=== PATIENT | male | born 1930 | race Caucasian/White ===

== ENCOUNTER 2019-04-09 10:53 | Inpatient (IN) | payer MEDICARE, OTHER ==
[2019-04-09 11:33] LABS: #Eosinphils 0.2 thou/uL (0.0-0.7); #Lymphocytes 2.2 thou/uL (1.20-3.40); #Monocytes 0.8 thou/uL (0.11-0.59); #Neutrophils 7.2 thou/uL (1.40-6.50); %Basophils 0.4 % (0.0-1.0); %Eosinophils 1.9 % (0.0-10.0); %Lymphocytes 20.8 % (21.0-51.0); %Monocytes 7.5 % (0.0-10.0); %Neutrophils 69.4 % (42.0-75.0); Mean Corpuscular HGB CONC 31.9 g/dL (32.0-36.0); Mean Corpuscular Hemoglobin 32.2 pg (27.0-31.0); Mean Platelet Volume 9.4 fL (7.4-10.4); Platelet Count 160 thou/uL (130-400); RBC Distribution Width 11.9 % (11.5-14.5); Red Blood Cell (RBC) Count 3.72 mill/uL (4.70-6.10); White Blood Cell (WBC) Count 10.4 thou/uL (4.8-10.8)
[2019-04-09 11:39] LABS: INR-International Normal Ratio 1.7; PTT 35.8 SEC (22.9-36.1); Prothrombin Time 19.4 SEC (12.0-14.7)
[2019-04-09 11:59] LABS: ALT (SGPT) 19 U/L (8-55); AST (SGOT) 25 U/L (5-34); Albumin 3.6 g/dL (3.4-4.8); Alkaline Phosphatase 58 U/L (40-110); Anion Gap 12 mmol/L (10-20); BUN (Urea Nitrogen) 56 mg/dL (8.4-25.7); Bilirubin, Total 0.6 mg/dL (0.2-1.2); Calc. Creatinine Clearance 0 mL/min (70-130); Calcium 8.8 mg/dL (7.8-10.44); Carbon Dioxide 27 mmol/L (23-31); Chloride 105 mmol/L (98-107); Estimated GFR-MDRD 43; Globulin 2.6 g/dL (2.4-3.5); Glucose 94 mg/dL (83-110); Potassium 4.6 mmol/L (3.5-5.1); Protein, Total 6.2 g/dL (5.8-8.1); Sodium 139 mmol/L (136-145)
[2019-04-09 12:58] LABS: Bilirubin Negative (Negative); Blood, Urine Negative (Negative); Clarity Clear (Clear); Glucose, Urine (Dipstick) Normal (Negative); Leukocyte Negative Leu/uL (Negative); Nitrite Negative (Negative); Protein, Urine (Dipstick) Negative (Neg-Trace); Urobilinogen Normal mg/dL (Less than 2)
[2019-04-09] MEDS ORDERED: Ondansetron ODT 4 MG TAB SL PRN (13:00)
[2019-04-09] MEDS ORDERED: Ondansetron PF 4 MG/2 ML Vial IVP PRN (13:00)
[2019-04-09 13:41] LABS: CKMB 1.9 ng/mL (0-6.6)
--- NOTE | 2019-04-09 13:55 | CT ---
CT BRAIN NONCONTRAST: DATE: 04/09/2019 HISTORY: 89-year-old male with dizziness and generalized weakness FINDINGS: There is no evidence of acute intra-axial or extra-axial hemorrhage. There is no midline shift or any other mass effect. There is no extra-axial fluid collection. There is no evidence of obstructive hydrocephalus. Calvarium is intact. There is diffuse brain parenchymal volume loss. There are low att enuation areas in the white matter. 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 IMPRESSION: 1) No acute intracranial findings. 2) involutional changes and chronic ischemic white matter changes.
[2019-04-09] MEDS ORDERED: Aspirin Chewable 81 MG TAB ONE (14:05)
[2019-04-09] MEDS ORDERED: Dextrose 5 % And 0.9 % NaCl 1,000 ML IV SCH (16:30)
[2019-04-09] MEDS ORDERED: Calcium Carbonate 500 MG ChewTAB PO PRN (16:37)
[2019-04-09 17:13] LABS: INR-International Normal Ratio 1.6; PTT 33.6 SEC (22.9-36.1); Prothrombin Time 18.9 SEC (12.0-14.7)
[2019-04-09 17:23] LABS: ALT (SGPT) 19 U/L (8-55); AST (SGOT) 29 U/L (5-34); Albumin 3.3 g/dL (3.4-4.8); Alkaline Phosphatase 52 U/L (40-110); Anion Gap 12 mmol/L (10-20); BUN (Urea Nitrogen) 58 mg/dL (8.4-25.7); Bilirubin, Total 0.6 mg/dL (0.2-1.2); Calc. Creatinine Clearance 38 mL/min (70-130); Calcium 8.6 mg/dL (7.8-10.44); Carbon Dioxide 26 mmol/L (23-31); Chloride 108 mmol/L (98-107); Estimated GFR-MDRD 46; Globulin 2.4 g/dL (2.4-3.5); Glucose 96 mg/dL (83-110); Potassium 4.7 mmol/L (3.5-5.1); Protein, Total 5.7 g/dL (5.8-8.1); Sodium 141 mmol/L (136-145)
[2019-04-09 17:32] LABS: Troponin I 0.066 ng/mL (< 0.028)
--- NOTE | 2019-04-09 18:07 | PDOC.HHP ---
Hospitalist HPI - History of Present Illness black diarrhea History of Present Illness: 89yo M w/ MHx of paroxysmal atrial fibrillation (on eliquis 5mg PO qd, pacemaker in place), arthritis (ibuprofen bid for the past 10 years) presents with black diarrhea. Patient has been recently started on eliquis for atrial fibrillation (02/26) by Dr. chen, and has been taking ibuprofen usually bidaily for arthritis for the past 10 years. Yesterday, started noticing black liquidiy black stools so presented to the ED. Denies fatigue , chest pain or pressure, palpitations, dyspnea, hematemesis, hematochezia, abdominal pain, focal weakness, previous such episodes, usage of over the counter medications. ED Course: In the ED, was found to have mild anemia with stable hemoglobin, troponin was indeterminate, and FOBT was positive. He was admitted to the telemetry floor for further monitoring Hospitalist ROS - Review of Systems Constitutional: denies: fever, chills, sweats, weakness, malaise, other Eyes: denies: pain, vision change, conjunctivae inflammation, eyelid inflammation, redness, other ENT: reports: other (no hematemesis, no history of esophageal varices) Respiratory: denies: cough, dry, shortness of breath, hemoptysis, SOB with excertion, pleuritic pain, sputum, wheezing, other Cardiovascular: reports: chest pain (chest pressure for thirty minutes that resolved hours ago; not associated with exertion). denies: palpitations, orthopnea, paroxysmal noc. dyspnea, edema, light headedness, other Gastrointestinal: reports: diarrhea, melena. denies: nausea, vomiting, abdominal pain, constipation, hematochezia, other Genitourinary: denies: dysuria, frequency, incontinence, hematuria, retention, other Skin: denies: rash, lesions, caroline, bruising, other Neurological: denies: weakness, numbness, incoordination, change in speech, confusion, seizures, other All other systems reviewed; all pertinent +/- noted in HPI/Subj Hospitalist History - Past Medical History Source: patient, family Cardiac: reports: AFIB. denies: CAD, CHF, [place] Pulmonary: denies: CVA/TIA/stroke, congestive heart failure, lung disease [employer]: denies: TIA Gastrointestinal: denies: Constipation, Diverticulosis, GI bleed, Gastritis, Inflam bowel disease, Irritable bowel disease, Peptic ulcer disease Hepatobiliary: reports: no pertinent history Psych: reports: no pertinent history Musculoskeletal: reports: no pertinent history Rheumatologic: reports: no pertinent history Infectious Disease: reports: no pertinent history ENT: reports: no pertinent history Renal/: reports: no pertinent history Endocrine: reports: no pertinent history Dermatology: reports: no pertinent history - Exam General Appearance: NAD, awake alert Eye: PERRL ENT: normocephalic atraumatic, no oropharyngeal lesions, moist mucosa Neck: supple, symmetric, no thyromegaly, no lymphadenopathy, JVD Heart: RRR, no murmur, no gallops, no rubs, normal peripheral pulses Respiratory: CTAB, no wheezes, no ronchi, normal chest expansion, no tachypnea, normal percussion, rales Gastrointestinal: soft, non-tender, non-distended, normal bowel sounds, no palpable masses, no hepatomegaly, no splenomegaly, no bruit Extremities: no cyanosis, no clubbing Extremities - other findings: pitting edema b/l up to knee level Neurological: cranial nerve grossly intact, normal sensation to touch, no weakness, no focal deficits, no new deficit Musculoskeletal: normal tone, normal strength, no muscle wasting Psychiatric: normal affect, normal behavior, A&O x 3 Hospitalist Results - Labs Result Diagrams: 04/09/19 11:20 04/09/19 16:56 Lab results: WBC 10.4 thou/uL (4.8-10.8) 04/09/19 11:20 Hgb 12.0 g/dL (14.0-18.0) L 04/09/19 11:20 Hct 37.5 % (42.0-52.0) L 04/09/19 11:20 MCV 101.0 fL (78.0-98.0) H 04/09/19 11:20 Plt Count 160 thou/uL (130-400) 04/09/19 11:20 Neutrophils % 69.4 % (42.0-75.0) 04/09/19 11:20 Sodium 141 mmol/L (136-145) 04/09/19 16:56 Potassium 4.7 mmol/L (3.5-5.1) 04/09/19 16:56 Chloride 108 mmol/L (98-107) H 04/09/19 16:56 Carbon Dioxide 26 mmol/L (23-31) 04/09/19 16:56 BUN 58 mg/dL (8.4-25.7) H 04/09/19 16:56 Creatinine 1.44 mg/dL (0.7-1.3) H 04/09/19 16:56 Glucose 96 mg/dL (83-110) 04/09/19 16:56 Calcium 8.6 mg/dL (7.8-10.44) 04/09/19 16:56 Total Bilirubin 0.6 mg/dL (0.2-1.2) 04/09/19 16:56 AST 29 U/L (5-34) 04/09/19 16:56 ALT 19 U/L (8-55) 04/09/19 16:56 Alkaline Phosphatase 52 U/L (40-110) 04/09/19 16:56 CK-MB (CK-2) 1.9 ng/mL (0-6.6) 04/09/19 11:20 Troponin I 0.066 ng/mL (< 0.028) H 04/09/19 16:57 Serum Total Protein 5.7 g/dL (5.8-8.1) L 04/09/19 16:56 Albumin 3.3 g/dL (3.4-4.8) L 04/09/19 16:56 Urine Ketones Negative mg/dL (Negative) 04/09/19 12:42 Urine Blood Negative (Negative) 04/09/19 12:42 Urine Nitrite Negative (Negative) 04/09/19 12:42 Ur Leukocyte Esterase Negative Gerry/uL (Negative) 04/09/19 12:42 - EKG Interpretation EKG: EKG showed paced rhythm with no concordand ST changes suggestive of acute ischemia Hospitalist H&P A/P - Problem (1) Upper GI bleed Code(s): K92.2 - GASTROINTESTINAL HEMORRHAGE, UNSPECIFIED Status: Acute (2) Atrial fibrillation Code(s): I48.91 - UNSPECIFIED ATRIAL FIBRILLATION Status: Acute (3) Elevated troponin Code(s): R79.89 - OTHER SPECIFIED ABNORMAL FINDINGS OF BLOOD CHEMISTRY Status : Acute (4) Hypervolemia Code(s): E87.70 - FLUID OVERLOAD, UNSPECIFIED Status: Acute - Plan Plan: * Upper GI bleed * melanotic stools * FOBT positive; BUN/Cr significantly elevated * likely due to chronic ibuprofen use and recent initiation of eliquis * presented with mild anemia * * will follow HgB q8h * pantoprazole 40mg PO bid * patient HD stable, will hold fluids considering hypervolemic state * GI consult for EGD * atrial fibrillation * per patient, was recently diagnosed by dr chen but poor historian; will obtain records * telemetry showed paced rhythm, well controlled rate * * stopped eliquis and aspirin in context of GIB * troponinemia * downtrending * atypical chest pain that resolved * may be due to atrial fibrillation episodes or demand due to acute anemia * EKG showing no signs of acute ischemia * hypervolemia * no records available regarding heart failure but likely etiology * * will continue home lasix * BNP; if elevated will obtain echo * continue home medications * Dispo * full code * DVT PPX: mechanical due to GIB * GI PPX: treated for GIB
[2019-04-09] MEDS ORDERED: Pantoprazole 40 MG VIAL IVP SCH (21:00)
[2019-04-09] MEDS: Dronedarone HCl 400 MG TAB PO SCH (21:39)
[2019-04-09] MEDS: Ascorbic Acid 500 mg Chewable Tablet PO SCH (21:39)
--- NOTE | 2019-04-09 21:40 | CON ---
DATE OF CONSULTATION: 04/09/2019 CHIEF COMPLAINT: Weakness and blood in the stool. HISTORY OF PRESENT ILLNESS: Mr. Eastman is an 89-year-old man, who was started on Eliquis a couple of months ago for atrial fibrillation. He takes ibuprofen a couple of tablets per day for arthritis in his hands and back. He has had no nausea or vomiting. Last night, he noticed a black tarry runny stool. This morning, had a second episode. He told his about it. She advised him going to the emergency room to get it checked out. He takes Tums 3 times per day for years for frequent belching. He gets some pressure-like periumbilical abdominal discomfort intermittently, but no new abdominal pain. His weight has been stable. He states that he had a colonoscopy a few years ago by Dr. Rich. PAST MEDICAL HISTORY: Atrial fibrillation, arthritis, hyperlipidemia, hypertension. PAST SURGICAL HISTORY: Pacemaker placement and replacement, cataract surgery, shoulder surgery, hand surgery, tonsillectomy. FAMILY HISTORY: Negative for GI malignancy. SOCIAL HISTORY: No alcohol, tobacco, or drugs. ALLERGIES: NO KNOWN DRUG ALLERGIES. MEDICATIONS: Prior to admission; 1. Rosuvastatin. 2. Ezetimibe. 3. Bystolic. 4. Lasix. 5. Klor-Con. 6. Ecotrin. 7. Cetirizine. 8. Multaq. 9. Eliquis 5 mg twice daily. His last dose was this morning. 10. Ibuprofen 400 mg as needed for arthritis pain. REVIEW OF SYSTEMS: Negative x10 systems reviewed, except as stated in the history of present illness. PHYSICAL EXAMINATION: VITAL SIGNS: Temperature 98.4, pulse 62, blood pressure 142/63. GENERAL: He is in no acute distress. Alert and oriented x3. HEENT: Eyes have no scleral icterus. Oropharynx is clear without lesions. NECK: No cervical or supraclavicular lymphadenopathy. LUNGS: Clear to auscultation bilaterally. HEART: Regular rate and rhythm without murmur. ABDOMEN: Soft, nontender, and nondistended. Bowel sounds are present. EXTREMITIES: 1+ pitting lower extremity edema. NEUROLOGIC: Cranial nerves are grossly intact. LABORATORY DATA: White blood cell count 10.4, hemoglobin 12.0, MCV 101, platelets 160. INR 1.6. Creatinine 1.44. Bilirubin 0.6, AST 29, ALT 19, alkaline phosphatase 52, albumin 3.3. IMPRESSION: 1. Gastrointestinal bleed presenting with melena a couple of episodes last night and this morning. This is in the setting of chronic anticoagulation on Eliquis. He also takes ibuprofen daily for arthritis. 2. Acute kidney disease with a creatinine at 1.53 on presentation, 1.44 a few hours later. BUN is elevated, which could be secondary to the bleeding. This could delay metabolism of the Eliquis. 3. Anemia of acute blood loss. He is hemodynamically stable. We will follow the trend of his hemoglobin. RECOMMENDATIONS: 1. Proton pump inhibitor IV. 2. Eliquis has been held. Last dose was this morning. 3. I will plan for EGD on Thursday. In the meantime, we will keep him on a clear liquid diet. Job ID: [id number]
[2019-04-10 05:19] LABS: Hemoglobin 8.3 g/dL (14.0-18.0)
[2019-04-10 05:45] LABS: ALT (SGPT) 17 U/L (8-55); AST (SGOT) 24 U/L (5-34); Albumin 2.9 g/dL (3.4-4.8); Alkaline Phosphatase 42 U/L (40-110); Anion Gap 12 mmol/L (10-20); BUN (Urea Nitrogen) 57 mg/dL (8.4-25.7); Bilirubin, Total 0.5 mg/dL (0.2-1.2); Calc. Creatinine Clearance 43 mL/min (70-130); Calcium 8.1 mg/dL (7.8-10.44); Carbon Dioxide 23 mmol/L (23-31); Chloride 112 mmol/L (98-107); Estimated GFR-MDRD 54; Globulin 1.9 g/dL (2.4-3.5); Glucose 102 mg/dL (83-110); Magnesium 2.1 mg/dL (1.6-2.6); Potassium 4.3 mmol/L (3.5-5.1); Protein, Total 4.8 g/dL (5.8-8.1); Sodium 143 mmol/L (136-145)
[2019-04-10] MEDS ORDERED: Furosemide 40 MG TAB PO SCH (09:00)
[2019-04-10] MEDS ORDERED: Potassium Chloride 10 MEQ TAB PO SCH (09:00)
[2019-04-10 09:07] LABS: Hemoglobin 7.9 g/dL (14.0-18.0)
[2019-04-10] MEDS: Dronedarone HCl 400 MG TAB PO SCH ×2 (10:14→20:27)
[2019-04-10] MEDS: Pantoprazole 40 MG VIAL IVP SCH ×2 (10:14→20:28)
[2019-04-10] MEDS: Nebivolol HCl 5 MG TAB PO SCH (10:14)
[2019-04-10] MEDS ORDERED: ePHEDrine/0.9% NaCl/PF SYRINGE 50 mg/10 ml ONE (10:28)
[2019-04-10] MEDS ORDERED: Lidocaine 1% PF 5 ML VIAL ONE (10:28)
[2019-04-10] MEDS ORDERED: PHENYLEPHRINE-NS 100 MCG/ML 10 ML SYRINGE ONE (10:28)
[2019-04-10] MEDS ORDERED: PROPOFOL 200 MG/20 ML VIAL ONE (10:28)
[2019-04-10] MEDS: Rosuvastatin 10 MG TAB PO SCH (11:40)
[2019-04-10] MEDS: Ezetimibe 10 MG TAB PO SCH (11:40)
[2019-04-10] MEDS: Ascorbic Acid 500 mg Chewable Tablet PO SCH ×2 (11:40→20:27)
[2019-04-10] MEDS ORDERED: Promethazine HCl 25 MG/ML VIAL SLOW IVP PRN (13:20)
[2019-04-10] MEDS ORDERED: Ondansetron HCl/PF 4 MG/2 ML Vial IVP PRN (13:20)
[2019-04-10] MEDS ORDERED: Promethazine HCl 25 MG/ML VIAL IM PRN (13:20)
--- NOTE | 2019-04-10 14:12 | OP ---
DATE OF PROCEDURE: 04/10/2019 PROCEDURE PERFORMED: Esophagogastroduodenoscopy with control of hemorrhage and biopsy. PREOPERATIVE DIAGNOSES: 1. Gastrointestinal bleed. 2. Anemia of acute blood loss, on anticoagulation for atrial fibrillation. His hemoglobin dropped from 12 to 7.9, and he did receive blood transfusion. His INR remains elevated despite having been off Eliquis for 24 hours now. In light of the significant drop in his hemoglobin, we are following through with endoscopy today rather than waiting until tomorrow. DESCRIPTION OF PROCEDURE: Informed consent was obtained from the patient. He was sedated with total intravenous anesthesia. The bite block was placed and the endoscope was advanced easily to the second portion of the duodenum and retroflexion was performed in the stomach. The esophagus had mild distal esophagitis with a retained pill sitting in the esophagus. The pill and white plaque from the pill were advanced into the stomach. There was no significant erosions associated with this. The stomach had multiple shallow 1 cm erosions in the antrum without stigmata of recent bleeding. Retroflexed views in the stomach were unremarkable. The first portion of the duodenum was normal. The second portion of the duodenum had a 1 cm ulcer with a protruding red visible vessel in the base. This appeared to be an obvious bleeding source. There was no blood in the stomach or duodenum at the time of the procedure. 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 The scope could be advanced right up to the stricture and almost through, but the scope did not pass through the stricture. I could see well beyond and the mucosa appeared healthy beyond the stricture. I did not dilate this today. I placed 3 hemoclips over the visible vessel in the ulcer. There was good hemostasis confirmed. Biopsies were obtained from the antrum of the stomach to rule out H pylori. IMPRESSION: 1. Distal mild esophagitis with a pill sitting in the lower esophagus. 2. Erosive antral gastritis. Antral biopsies were taken to rule out Helicobacter pylori. 3. 1 cm ulcer in the second portion of the duodenum with a protruding red visible vessel in the base. This was treated with hemoclip placement x3 with good hemostasis confirmed. 4. 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 RECOMMENDATIONS: 1. Proton pump inhibitor twice daily. 2. Low-fiber diet in light of the duodenal stricture. 3. It should be okay to restart Eliquis in 1 or 2 weeks. Consider the lower dose Eliquis in light of his age and reduced renal function and bleed. 4. Await histopathology. 5. I will sign off for now. Please call if GI can be of assistance. I anticipate he should be able to be discharged home tomorrow if his hemoglobin stable and he is tolerating his diet well. He should follow up in the office in a couple of weeks. Job ID: [id number]
--- NOTE | 2019-04-10 16:01 | PDOC.HOSPP ---
- Subjective Encounter Date: 04/10/19 Encounter Time: 08:00 Subjective: overnight, lost 4g HgB after having 2-3 large melanotic stools. This morning, appears pale, weak, and complains of severe weakness to the point of barely being able to speak. Immediately reconvened with GI regarding acute deterioration - Objective Vital Signs & Weight: Vital Signs (12 hours) Temp Pulse Pulse Resp BP BP Pulse Ox 04/10/19 11:29 98.1 F 74 20 128/61 96 04/10/19 10:55 97.9 F 77 16 120/56 L 04/10/19 07:36 97.5 F L 69 20 103/55 L 94 L Weight Weight 168 lb 1.6 oz I&O: 04/09/19 04/10/19 04/11/19 06:59 06:59 06:59 Intake Total 390 10 Output Total 450 Balance 390 -440 Result Diagrams: 04/10/19 09:00 04/10/19 05:03 Hospitalist ROS - Review of Systems Constitutional: reports: weakness. denies: fever, chills, sweats, malaise, other Eyes: reports: pain Respiratory: reports: SOB with excertion. denies: cough, dry, shortness of breath, hemoptysis, pleuritic pain, sputum, wheezing, other Cardiovascular: reports: edema, light headedness. denies: chest pain, palpitations, orthopnea, paroxysmal noc. dyspnea, other Gastrointestinal: reports: melena, hematochezia. denies: nausea, vomiting, abdominal pain, diarrhea, constipation, other Genitourinary: denies: dysuria, frequency, incontinence, hematuria, retention, other Neurological: reports: weakness, change in speech - Medication Medications: Active Medications Generic Name Dose Route Start Last Admin Trade Name Freq PRN Reason Stop Dose Admin Ascorbic Acid 500 mg 04/09/19 21:00 04/10/19 11:40 Vitamin C PO Not Given BID GIORGI Dronedarone 400 mg 04/09/19 21:00 04/10/19 10:14 Multaq PO 400 mg BID GIORGI Administration Ezetimibe 5 mg 04/10/19 09:00 04/10/19 11:40 Zetia PO Not Given DAILY GIORGI Nebivolol 5 mg 04/10/19 09:00 04/10/19 10:14 Bystolic PO 5 mg DAILY GIORGI Administration Pantoprazole Sodium 40 mg 04/10/19 09:00 04/10/19 10:14 Protonix IVP 40 mg Q12HR GIORGI Administration Rosuvastatin Calcium 10 mg 04/10/19 09:00 04/10/19 11:40 Crestor PO Not Given DAILY GIORGI Sodium Chloride 10 ml 04/09/19 16:26 04/09/19 21:39 Flush - Normal Saline IVF 10 ml PRN PRN Administration Saline Flush - Exam General Appearance: awake alert, ill appearing General - other findings: appears pale, worse than yesterday Eye - other findings: pale conjunctivae ENT: dry oral mucosa Neck: JVD Heart: no murmur, no gallops, no rubs, normal peripheral pulses Heart - other findings: regular rhythm; mild tachcardia Respiratory: CTAB, no wheezes, no rales, no ronchi, normal chest expansion, tachypneic Gastrointestinal: soft, non-tender, non-distended Gastrointestinal - other findings: hyperactive bowel sounds Extremities: no cyanosis, no clubbing Extremities - other findings: b/l pitting edema to knee level; improved Neurological: cranial nerve grossly intact, normal sensation to touch, no focal deficits, no new deficit Psychiatric: normal affect, normal behavior, A&O x 3 Hosp A/P (1) Upper GI bleed Code(s): K92.2 - GASTROINTESTINAL HEMORRHAGE, UNSPECIFIED Status: Acute (2) Atrial fibrillation Code(s): I48.91 - UNSPECIFIED ATRIAL FIBRILLATION Status: Acute (3) Elevated troponin Code(s): R79.89 - OTHER SPECIFIED ABNORMAL FINDINGS OF BLOOD CHEMISTRY Status : Acute (4) Hypervolemia Code(s): E87.70 - FLUID OVERLOAD, UNSPECIFIED Status: Acute - Plan * Upper GI bleed * acute symptomatic anemia due to blood loss * per nurse, two large melanotic stools and some reddish blood in second stool * HgB 12->8 overnight * notified GI immediately; currently s/p EGD and duodenal ulcer, hemoclipped; biopsies pending * per patient's request changed to DNAR * * transfused 2 x PRBC prior to EGD * protonix bid * low fiber diet for duodenal stricture * agree w/ GI regarding lower dosage of eliquis * * atrial fibrillation * per patient, was recently diagnosed by dr chen but poor historian; will obtain records * telemetry showing paced rhythm, well controlled rate * * stopped eliquis and aspirin in context due to GIB * will request to be seen by cardiology outpatient but agree with lower dosage of eliquis * * hypervolemia (improving) * no records available regarding heart failure but likely etiology * * will hold lasix considering bordeline hypotension * * troponinemia * downtrending * atypical chest pain that resolved * may be due to atrial fibrillation episodes or demand due to acute anemia * EKG showing no signs of acute ischemia * Dispo * DNAR (per patient's request) * DVT PPX: mechanical due to GIB * GI PPX: treated for GIB
[2019-04-10 17:53] LABS: Hemoglobin 11.1 g/dL (14.0-18.0)
[2019-04-11 05:30] LABS: Anion Gap 9 mmol/L (10-20); BUN (Urea Nitrogen) 41 mg/dL (8.4-25.7); Calc. Creatinine Clearance 47 mL/min (70-130); Calcium 8.1 mg/dL (7.8-10.44); Carbon Dioxide 25 mmol/L (23-31); Chloride 112 mmol/L (98-107); Estimated GFR-MDRD 59; Glucose 116 mg/dL (83-110); Potassium 3.9 mmol/L (3.5-5.1); Sodium 142 mmol/L (136-145)
[2019-04-11 05:57] LABS: #Basophils 0.1 thou/uL (0.0-0.2); #Eosinphils 0.1 thou/uL (0.0-0.7); #Monocytes 1.2 thou/uL (0.11-0.59); %Basophils 0.6 % (0.0-1.0); %Eosinophils 0.8 % (0.0-10.0); %Lymphocytes 15.8 % (21.0-51.0); %Monocytes 9.6 % (0.0-10.0); %Neutrophils 73.2 % (42.0-75.0); Anisocytosis SLIGHT = 6-15 cells (100X) (0-5/hpf); Hemoglobin 9.9 g/dL (14.0-18.0); MDiff Complete? YES; Mean Corpuscular HGB CONC 32.2 g/dL (32.0-36.0); Mean Corpuscular Volume 93.2 fL (78.0-98.0); Mean Platelet Volume 10.2 fL (7.4-10.4); Platelet Count 111 thou/uL (130-400); Platelet Morphology Comment Appears Decreased; RBC Distribution Width 17.4 % (11.5-14.5); White Blood Cell (WBC) Count 12.3 thou/uL (4.8-10.8)
[2019-04-11] MEDS: Ascorbic Acid 500 mg Chewable Tablet PO SCH (09:38)
[2019-04-11] MEDS: Dronedarone HCl 400 MG TAB PO SCH (09:38)
[2019-04-11] MEDS: Nebivolol HCl 5 MG TAB PO SCH (09:39)
[2019-04-11] MEDS: Ezetimibe 10 MG TAB PO SCH (09:39)
[2019-04-11] MEDS: Rosuvastatin 10 MG TAB PO SCH (09:39)
[2019-04-11] MEDS: Pantoprazole 40 MG VIAL IVP SCH (09:39)
[2019-04-11 12:03] LABS: Hemoglobin 9.9 g/dL (14.0-18.0)
[2019-04-11 12:32] VITALS: BP 128/63; TEMP 97.4
[2019-04-11 15:47] VITALS: BMI 27.1
--- NOTE | 2019-04-12 15:02 | DIS ---
DATE OF ADMISSION: 04/10/2019 DATE OF DISCHARGE: 04/11/2019 HOSPITAL COURSE: Mr. Eastman is an 89-year-old male with medical history of arthritis, who presented after having multiple black liquidy stools for the past day. The patient has been using ibuprofen for the past 10 years regularly usually twice a day for arthritis, and has also been started on Eliquis for recent diagnosis of atrial fibrillation. He was diagnosed with a bleeding duodenal ulcer after an EGD was done, and also was hemo-clipped with biopsies pending. During his inpatient stay, the patient had to be transfused with 2 units of packed RBCs due to severe symptomatic anemia, but after the procedure, the patient's symptoms resolved and his hemoglobin remained stable at around 10 g/dL. The patient was discharged home with extensive education regarding his new medications as well as holding his Eliquis dose until he is seen by his activity aide as an outpatient. PHYSICAL EXAMINATION: VITAL SIGNS: The patient's vitals were unremarkable. GENERAL: On exam, he was sitting comfortably in the chair, in no apparent distress. HEENT: Eye exam, mild conjunctival paleness bilaterally. CARDIAC: Regular rate and rhythm. No murmurs. No gallops. LUNGS: Clear to auscultation bilaterally. No rales, rhonchi, or wheezing. ABDOMEN: Soft, nontender, and nondistended. Normal bowel sounds. EXTREMITIES: No edema. PSYCHIATRIC: Normal affect. Normal behavior. Alert and oriented x3. ASSESSMENT AND PLAN: Mr. Eastman is an 89-year-old male, who presented with acute symptomatic anemia due to a bleeding duodenal ulcer. 1. Bleeding duodenal ulcer: a. Most likely cause is chronic use of ibuprofen. On the day of discharge, the patient was informed not to use NSAIDs any longer, and if in pain to use Tylenol Extra Strength. b. The patient was discharged on Protonix b.i.d. and low-fiber diet per GI recommendations. c. The patient's Eliquis was held, pending assessment by outpatient activity aide within 2 to 3 weeks. d. The patient's aspirin was continued, but the patient was advised to return to the ED in case anemic symptoms resurface. 2. Atrial fibrillation: a. The patient was recently diagnosed by Dr. Lui. b. On the telemetry floor, he was showing a paced rhythm. Well controlled rate. c. We stopped the Eliquis and the aspirin initially due to the upper gastrointestinal bleed. d. Aspirin was resumed, but Eliquis was continued to be held based on GI recommendations until the patient is seen as an outpatient by his activity aide. 3. Troponinemia: a. The patient initially presented with indeterminate levels of troponins that remained elevated. He did complain about atypical chest pain that has already resolved. EKG showed no signs of acute ischemia. Most likely due to demand ischemia in the context of acute anemia. The patient's discharge took 70 minutes after extensive explanation to the patient and then again to the family members after they arrived at the patient's home. Job ID: [id number]
--- NOTE | 2019-04-13 14:41 | EKG ---
Test Reason : ROUTINE Blood Pressure : / mmHG Vent. Rate : 060 BPM Atrial Rate : 065 BPM P-R Int : 000 ms QRS Dur : 158 ms QT Int : 526 ms P-R-T Axes : 000 -77 088 degrees QTc Int : 526 ms AV dual-paced rhythm Abnormal ECG Reconfirmed by Jonathan CONNORS ([id number]), assignment desk editor HARDEEP VALDES ([id number]) on 04/13/2019 2:40:31 PM Referred By: TRAVIS Confirmed By:Jonathan CONNORS
== END 2019-04-11 18:32 | disposition home health service (06) | DRG 378 ==
LOC: ERS 10:53 → 2SW 13:03 → OBSVTOIN 04-10 17:35
PROVIDERS: ADMIT Internal Medicine; ATTEND Internal Medicine
PROC: 0W3P8ZZ Control Bleeding in Gastrointestinal Tract, Via Natural or Artificial Opening Endoscopic (ICD-10-PCS; principal; 2019-04-10)
PROC: 0DB78ZX Excision of Stomach, Pylorus, Via Natural or Artificial Opening Endoscopic, Diagnostic (ICD-10-PCS; 2019-04-10)
PROC: 30233N1 Transfusion of Nonautologous Red Blood Cells into Peripheral Vein, Percutaneous Approach (ICD-10-PCS; 2019-04-10)
DX: K26.4 Chronic or unspecified duodenal ulcer with hemorrhage (principal); N17.9 Acute kidney failure, unspecified; D62 Acute posthemorrhagic anemia; Z66 Do not resuscitate; I48.0 Paroxysmal atrial fibrillation; K20.9 Esophagitis, unspecified; K29.71 Gastritis, unspecified, with bleeding; M19.90 Unspecified osteoarthritis, unspecified site; E87.70 Fluid overload, unspecified; R79.89 Other specified abnormal findings of blood chemistry; E78.00 Pure hypercholesterolemia, unspecified; Z79.01 Long term (current) use of anticoagulants; Z95.0 Presence of cardiac pacemaker; Z79.899 Other long term (current) drug therapy
CPT/HCPCS: 36415; 36430; 70450; 80048; 80053; 81003; 82274; 82553; 83735; 83880; 84484; 85018; 85025; 85610; 85730; 86850; 86900; 86901; 88305; 88312; 93005; 93010; 93306; C9113; J2001; J2704; P9016

== ENCOUNTER 2019-12-08 11:53 | Outpatient (CLI) | payer MEDICARE ==
--- NOTE | 2019-12-08 13:55 | RAD ---
2 VIEWS CHEST: Date: 12/08/2019 COMPARISON: CTA chest dated 12/08/2019. HISTORY: Pleural effusion. FINDINGS: Two views of the chest shows a cardiomediastinal silhouette which is upper limits of normal in size. A pacemaker is seen with its leads in the right atrium and ventricle. There is moderate right pleural effusion with adjacent atelectasis. No left pleural effusion is seen. No focal infiltrates are appre ciated. Degenerative changes are seen in the spine. The patient is status post left shoulder arthroplasty. IMPRESSION: Moderate right pleural effusion. POS: [facility]
--- NOTE | 2019-12-08 14:10 | CT ---
CTA OF THE CHEST WITH CONTRAST: 12/08/19 COMPARISON: Chest x-ray 12/08/19. HISTORY: Had follow-up for pacemaker in Dr. Lui's office this morning. An echocardiogram showed a possibl e mass and pleural effusion. TECHNIQUE: Multiple contiguous axial images were obtained in a CTA of the chest without and with IV contrast. Sa gittal and coronal reformats were performed. FINDINGS: There is a moderate right pleural effusion. Atelectasis is seen in the right lower lobe which appears slightly mass-like. No obvious mass is identified. No left pleural effusion is seen. No focal infilt rates are present. There are calcified granulomas in the right middle lobe. The pulmonary arteries are well opacified without filling defects to suggest pulmonary emboli. A pace maker is seen with its leads in the right atrium and ventricle. Calcifications are seen in the wilde ry arteries. No hilar or mediastinal lymphadenopathy are appreciated. The visualized subdiaphragmatic structures are unremarkable. Degenerative changes are seen in the spi ne with chronic wedge compression deformity of the T12 vertebral body. The chest wall soft tissues ar e unremarkable. IMPRESSION: 1. Moderate right pleural effusion with adjacent atelectasis. 2. No evidence of pulmonary thromboembolism. POS: [facility]
== END 2019-12-08 11:54 | disposition home or self-care (01) ==
LOC: CT 11:53
PROVIDERS: ATTEND Internal Medicine Cardiovascular Disease
DX: J90 Pleural effusion, not elsewhere classified (principal); J98.11 Atelectasis
CPT/HCPCS: 36415; 71046; 71275; 80053; 80061; 82565

== ENCOUNTER 2019-12-22 08:45 | Outpatient (CLI) | payer MEDICARE ==
--- NOTE | 2019-12-22 12:10 | RAD ---
PA AND LATERAL VIEWS CHEST: HISTORY: Pleural effusion. COMPARISON: 12/08/2019. FINDINGS: The heart size is normal. The left-sided pacemaker device remains in place. The moderate-sized righ t pleural effusion is again seen with adjacent atelectatic change. No pneumothoraces, left-sided ple ural effusion, or left-sided infiltrates are seen. IMPRESSION: Stable moderate-sized right pleural effusion. POS: [facility]
== END 2019-12-22 08:46 | disposition home or self-care (01) ==
LOC: BICRAD 08:45
PROVIDERS: ATTEND Internal Medicine Cardiovascular Disease
DX: J90 Pleural effusion, not elsewhere classified (principal)
CPT/HCPCS: 36415; 71046; 80053; 80061; 84443

== ENCOUNTER 2020-01-04 08:01 | Day surgery (SDC) | payer MEDICARE ==
[2020-01-03 10:35] VITALS: BMI 22.8
--- NOTE | 2020-01-03 13:23 | HP ---
The patient is scheduled for a procedure on 01/04/2020, at 9 a.m. in Day Surgery, thoracentesis. HISTORY OF PRESENT ILLNESS: An 89-year-old gentleman, lifelong nonsmoker, who is referred here by Dr. Lui for a right pleural effusion. His CT and chest x-ray showed a moderate right pleural effusion. Date of exam was 12/08/2019, which I reviewed and agreed. He has never smoked. No prior history of TB, pneumonia, or bronchial asthma. For the last 2 years, he is having some difficulty breathing without any associated fever, chills, sweats, or cough. Denies any weight loss. PAST MEDICAL HISTORY: Pertinent mainly for hypertension, diastolic dysfunction, high cholesterol, coronary artery disease. 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 MEDICATIONS: Include, 1. Crestor 10. 2. Zetia mg. 3. Bystolic 2.5 mg. 4. Lasix 120 two a day. 5. Potassium. 6. Aspirin. 7. Vitamin C. 8. Amiodarone 200 two a day. 9. Eliquis 5 two a day, which he is going to stop today. 10. Protonix 40 a day. ALLERGIES: NONE. SOCIAL HISTORY: Retired [employer]. . REVIEW OF SYSTEMS: Ten-point negative. PHYSICAL EXAMINATION: VITAL SIGNS: Oxygen saturation on room air, pulse 74, blood pressure 120/70, respiratory rate 18. CHEST: Decreased breath sounds in the right lower one-half, left unremarkable. There is no wheezing and no crackles. CARDIAC: Normal S1 and S2. No gallops. ABDOMEN: Soft. IMPRESSION: 1. Moderate right pleural effusion. 2. Status post pacemaker, atrial fibrillation, hypertension, high cholesterol. PLAN: Outpatient thoracentesis will be done. Further recommendation thereafter. Job ID: [id number]
[2020-01-04 10:05] LABS: Fluid, Triglycerides 11 mg/dL (Not Available); Pleural Fluid, Amylase Less than 30 U/L (Not Available); Pleural Fluid, Glucose 110 mg/dL; Pleural Fluid, LDH 71 U/L (Not Available); Pleural Fluid, Protein 2.7 g/dL
--- NOTE | 2020-01-04 10:09 | OP ---
DATE OF PROCEDURE: 01/04/2020 PROCEDURE PERFORMED: Thoracentesis. INDICATION: Pleural effusion, right sided. DESCRIPTION OF PROCEDURE: After informed consent, the patient was sitting upright in bed. The right posterior thorax was cleaned with chlorhexidine. 1% lidocaine infiltrated into the right 9th intercostal space in the posterior axillary line. The pleural cavity was entered in. 20 mL of pale yellow fluid was removed. Thereafter, using an 8-Kyrgyz catheter, a total of 1200 mL was removed without any difficulty. Pleural effusion appears to be a transudate; however, it will be sent for all appropriate studies including cytology and culture. Discharge note: Mr. Eastman tolerated the procedure well and vital signs remained stable. Postprocedure x-rays pending. Results of the fluid will be made available to the patient and family. Further recommendation thereafter. Job ID: [id number]
[2020-01-04 10:12] LABS: RBC Count-Automated (BF) 67 /cu.mm; WBC/Nucleated-Auto (BF) 145 uL
[2020-01-04 10:33] LABS: Body Fluid Source Thoracentesis Fluid; Clarity Clear (Clear); Tube # 1
[2020-01-04 10:34] LABS: BF Color Yellow
[2020-01-04 10:38] LABS: BF Segmented Neutrophils 3 %; Cell Count Non Hematic 51 %; Lymphocytes 46 %
--- NOTE | 2020-01-04 11:41 | RAD ---
CHEST 1 VIEW: Date: 01/04/2020 INDICATION: Status post thoracentesis. COMPARISON: Prior chest 2 views dated 12/22/2019. FINDINGS: There is a moderate collection of air underlying the right base likely related to a persistent trappe d lung. The right lower lobe did not appreciably unravel after removal of the moderate sized right pl eural effusion, likely related to a component of pleural thickening. There is a small right apical pn eumothorax component also involving the right hemithorax. Dr. Watkins was contacted with the findings at 0959 hours on 01/04/2020. Left lung is clear. Mild cardiomegaly and pacemaker stable. Left total gisel ulder replacement is similar appearing. IMPRESSION: Interval thoracentesis with likely a trapped right lower lobe and moderate right basilar pneumothorax . Small right apical pneumothorax is also present. Contact to Dr. Watkins as above. CODE CR.
--- NOTE | 2020-01-05 10:05 | DIS ---
DATE OF ADMISSION: 01/04/2020 DATE OF DISCHARGE: 01/04/2020 DISCHARGE SUMMARY: Thoracentesis. The patient tolerated the procedure well. X-ray post thoracentesis shows a loculated effusion in the right base, where the effusion was more than likely the lung is trapped, it has not re-expanded. The patient is asymptomatic. He has good breath sounds on his left lung. Discharged home to be followed up in the office at sometime. Job ID: [id number]
== END 2020-01-04 10:00 | disposition home or self-care (01) ==
LOC: SDC/OP 08:01
PROVIDERS: ATTEND Internal Medicine Pulmonary Disease
PROC: 0BJQ3ZZ Inspection of Pleura, Percutaneous Approach (ICD-10-PCS; principal; 2020-01-04)
DX: J90 Pleural effusion, not elsewhere classified (principal); I10 Essential (primary) hypertension; I25.10 Atherosclerotic heart disease of native coronary artery without angina pectoris; I48.91 Unspecified atrial fibrillation; E78.00 Pure hypercholesterolemia, unspecified; Z79.01 Long term (current) use of anticoagulants; Z79.82 Long term (current) use of aspirin; Z79.899 Other long term (current) drug therapy; Z95.0 Presence of cardiac pacemaker
CPT/HCPCS: 32554; 71045; 82150; 82945; 83615; 84157; 84478; 85060; 87070; 87116; 87205; 87206; 88112; 88305; 89051; J1642

== ENCOUNTER 2020-01-10 12:49 | Outpatient (CLI) | payer MEDICARE ==
--- NOTE | 2020-01-10 13:52 | RAD ---
2 VIEWS CHEST: Date: 01/10/2020 PROVIDED CLINICAL HISTORY: Dyspnea. FINDINGS: Comparison with 01/04/2020. The cardiac and mediastinal silhouette is unchanged in appearance. Left subclavian cardiac pacing dev ices are demonstrated in similar position. There is reaccumulation of right pleural fluid, similar to the 12/22/2019 examination. The left lung remains clear. Residual pneumothorax is not definitely dinah arent. IMPRESSION: Redevelopment of moderate right pleural fluid. POS: AH
== END 2020-01-10 12:50 | disposition home or self-care (01) ==
LOC: BICRAD 12:49
PROVIDERS: ATTEND Internal Medicine Pulmonary Disease
DX: R06.00 Dyspnea, unspecified (principal)
CPT/HCPCS: 71046

== ENCOUNTER 2020-02-13 14:07 | Outpatient (CLI) | payer MEDICARE ==
--- NOTE | 2020-02-13 14:31 | RAD ---
PA AND LATEARL VIEWS CHEST: Date: 02/13/2020 HISTORY: Dyspnea. COMPARISON: 01/10/2020. FINDINGS: Moderate size right pleural effusion is again seen. The heart size is normal. The aorta is tortuous. Left-sided pacemaker device remains in place. The left lung is clear. No pneumothoraces are seen. The re are degenerative changes in the spine and a left humeral head prosthesis. IMPRESSION: Stable moderate right pleural effusion. POS: OFF
== END 2020-02-13 14:08 | disposition home or self-care (01) ==
LOC: BICRAD 14:07
PROVIDERS: ATTEND Internal Medicine Pulmonary Disease
DX: R06.00 Dyspnea, unspecified (principal); J90 Pleural effusion, not elsewhere classified
CPT/HCPCS: 71046

== ENCOUNTER 2020-02-20 11:07 | Inpatient (IN) | payer MEDICARE ==
--- NOTE | 2020-02-20 11:48 | RAD ---
XR Chest 1 View Portable History: Dyspnea Comparison: Radiograph February 13, 2020 Findings: Moderate layering pleural effusion is similar. Left lung is relatively clear. Dual-lead pac er electrode tips project over the right atrium and right ventricle. Left shoulder hemiarthroplasty is similar. Impression: Similar layering right pleural effusion.
[2020-02-20 12:27] LABS: #Lymphocytes 0.7 thou/uL (1.20-3.40); #Monocytes 0.7 thou/uL (0.11-0.59); #Neutrophils 9.5 thou/uL (1.40-6.50); %Basophils 0.1 % (0.0-1.0); %Eosinophils 0.1 % (0.0-10.0); %Lymphocytes 6.3 % (21.0-51.0); %Monocytes 6.7 % (0.0-10.0); %Neutrophils 86.8 % (42.0-75.0); Hemoglobin 15.5 g/dL (14.0-18.0); Mean Corpuscular HGB CONC 32.5 g/dL (32.0-36.0); Mean Corpuscular Hemoglobin 33.3 pg (27.0-31.0); Mean Platelet Volume 8.1 fL (7.4-10.4); Platelet Count 276 thou/uL (130-400); RBC Distribution Width 13.9 % (11.5-14.5); Red Blood Cell (RBC) Count 4.64 mill/uL (4.70-6.10); White Blood Cell (WBC) Count 10.9 thou/uL (4.8-10.8)
[2020-02-20 12:33] LABS: INR-International Normal Ratio 1.5; PTT 36.8 sec (22.9-36.1); Prothrombin Time 18.2 sec (12.0-14.7)
[2020-02-20 12:52] LABS: ALT (SGPT) 42 U/L (8-55); AST (SGOT) 61 U/L (5-34); Albumin 3.6 g/dL (3.4-4.8); Alkaline Phosphatase 121 U/L (40-110); BUN (Urea Nitrogen) 46 mg/dL (8.4-25.7); Bilirubin, Total 0.7 mg/dL (0.2-1.2); Calc. Creatinine Clearance 0 mL/min (70-130); Globulin 3.5 g/dL (2.4-3.5); Glucose 119 mg/dL (83-110); Protein, Total 7.1 g/dL (5.8-8.1)
[2020-02-20 13:02] LABS: Anion Gap 23 mmol/L (10-20); Carbon Dioxide 31 mmol/L (23-31); Chloride 89 mmol/L (98-107); Sodium 140 mmol/L (136-145)
[2020-02-20 13:03] LABS: Potassium 2.7 mmol/L (3.5-5.1)
[2020-02-20 13:21] LABS: CKMB 3.4 ng/mL (0-6.6)
[2020-02-20] MEDS ORDERED: Aspirin 325 MG TAB ONE (13:39)
[2020-02-20] MEDS ORDERED: Potassium Chloride 20 MEQ TAB ONE (13:39)
[2020-02-20] MEDS ORDERED: Enoxaparin Sodium 60 MG/0.6 ML SYRINGE ONE (13:44)
--- NOTE | 2020-02-20 19:55 | HP ---
PRIMARY CARE PROVIDER: José Luis South MD PRIMARY SALT GRINDER: Jose Lui MD CHIEF COMPLAINT: General weakness. HISTORY OF PRESENT ILLNESS: This is an 89-year-old male, who presents to [facility] Emergency Department complaining of increasing fatigue, weakness in the context of known diastolic congestive heart failure and chronic atrial fibrillation, on Eliquis. The patient states he has been adjusted on his Lasix dosing at home and has been compliant with the fluid restriction up to approximately 48 ounces of liquid daily. The patient denied any increased lower extremity swelling or abdominal distention, but does admit to easy fatigability and decreased exercise tolerance. The patient states his weight is in the 128 range, previously approximately one year ago in the 170s according to his . The patient admits to decreased appetite, but no diarrhea, hemoptysis, or melena. The patient denied any specific chest pain, left arm discomfort, or jaw pain. The patient states he has been compliant with all of his chronic medication regimen. The patient denied any documented fever or chills or exposure history. The patient does state he underwent a thoracentesis approximately a month and a half prior to this evaluation by Dr. Watkins for right-sided pleural effusion likely due to congestive heart failure. The patient had 1.2 L removed according to the operative note. In the emergency room, the patient underwent general evaluation with chest imaging showing similar appearance of right-sided pleural effusion from previous imaging in December 2019. The patient did receive aspirin 325 mg in addition to potassium chloride 40 mEq and Lovenox 1 mg/kg x1 dose after troponin I was noted in the 0.34 range. PAST MEDICAL HISTORY: 1. Diastolic congestive heart failure with preserved ejection fraction of 50% to 55%. 2. Chronic atrial fibrillation with pacemaker placement on chronic anticoagulation with Eliquis. 3. Osteoarthritis. 4. Coronary artery disease. 5. History of myocardial infarction. 6. Hypertension. PAST SURGICAL HISTORY: 1. Status post pacemaker placement. 2. Status post exchange of pacemaker leads with replacement due to end of life of the battery. 3. Status post bilateral cataract removal. 4. Status post adenoidectomy. 5. Status post left shoulder rotator cuff repair. 6. Status post tonsillectomy. CURRENT MEDICATIONS: 1. Bystolic 2.5 mg p.o. daily. 2. Amiodarone 200 mg p.o. b.i.d. 3. Enteric-coated aspirin 81 mg p.o. daily. 4. Lasix 80 mg p.o. b.i.d. 5. Crestor 10 mg p.o. daily. 6. Vitamin C 500 mg p.o. b.i.d. 7. Vitamin D3 of 1000 units p.o. on Thursday, Thursday, and Thursday. 8. Zetia 2.5 mg p.o. daily. 9. Eliquis 2.5 mg p.o. b.i.d. 10. Protonix 40 mg p.o. b.i.d. ALLERGIES: NO KNOWN DRUG ALLERGIES. FAMILY HISTORY: Positive for hypertension and coronary artery disease. SOCIAL HISTORY: , accompanied by his in the emergency room. Resides in [place], [place]. Retired. No current alcohol, tobacco, or illicit drug use. REVIEW OF SYSTEMS: CONSTITUTIONAL: Negative for weight loss or gain, ability to conduct usual activities. SKIN: Negative for rash, itching. EYES: Negative for double vision, pain. ENT/MOUTH: Negative for nose bleeding, neck stiffness, pain, tenderness. CARDIOVASCULAR: Negative for palpitations, dyspnea on exertion, orthopnea. RESPIRATORY: Negative for shortness of breath, wheezing, cough, hemoptysis, fever or night sweats. GASTROINTESTINAL: Negative for poor appetite, abdominal pain, heartburn, nausea, vomiting, constipation, or diarrhea. GENITOURINARY: Negative for urgency, frequency, dysuria, nocturia. MUSCULOSKELETAL: Negative for pain, swelling. NEUROLOGIC/PSYCHIATRIC: Negative for anxiety, depression. ALLERGY/IMMUNOLOGIC: Negative for skin rash, bleeding tendency. Otherwise, negative except as stated per HPI. PHYSICAL EXAMINATION: VITAL SIGNS: On admission; blood pressure 137/75, pulse 61, respiratory rate 18, temperature 98.7 degrees Fahrenheit, and O2 saturation 96% on room air. GENERAL APPEARANCE: This is an 89-year-old male, alert and oriented x3, pleasant, responsive, in no acute distress. HEENT: Pupils are equal, round, and reactive to light and accommodation. Extraocular muscles are intact. No scleral icterus. No conjunctival injection. Nares patent. OP is clear. Oral mucosa dry. NECK: Supple. No cervical adenopathy. No thyromegaly. No carotid bruits. No JVD appreciated. Cervical spine with full active and passive range of motion. No meningeal signs noted. CHEST: Diminished breath sounds in the right base, otherwise clear to auscultation. CARDIOVASCULAR: S1 and S2 without noted murmur, rub, or gallop. ABDOMEN: Scaphoid, nontender, and nondistended. Bowel sounds are positive in all 4 quadrants. No palpable mass. No rebound or guarding appreciated. EXTREMITIES: Warm and dry with fair turgor. No clubbing, cyanosis, or asymmetric edema appreciated. Pulses palpable distally at the dorsalis pedis, posterior tibial, and popliteal arteries bilaterally. Capillary refill less than 2 seconds. NEUROLOGIC: Cranial nerves 2 through 12 are grossly intact. No focal or lateralizing signs appreciated. The patient not observed ambulatory during this exam. PERTINENT LABORATORY AND X-RAY FINDINGS: Sodium 140, potassium 2.7, chloride 89, CO2 of 31, anion gap 23, BUN 46, creatinine 1.98, estimated GFR 32, glucose 119, calcium 9.0, AST 61, ALT of 42, and alkaline phosphatase 121. Troponin I ranged between 0.340 to 0.361. BNP 526, previously 218 on 04/09/2019. CBC showed a white blood cell count of 10.9, hemoglobin 15.5, hematocrit 48, MCV 102, platelet count 276 with 87% neutrophils. PT 18.2, INR 1.5, and PTT 37. Portable chest x-ray dated 02/20/2020, showed right basilar pleural effusion, similar in appearance to previous chest imaging in December 2019. Dual lead pacemaker in place. EKG by my interpretation dated 02/20/2020, showed a paced rhythm with heart rates in the 60s to 70s. ASSESSMENT AND PLAN: 1. Acute on chronic diastolic congestive heart failure. The patient will be admitted to the telemetry unit. Continue general medical management. Consult Cardiology Service for any further recommendations. Repeat 2D transthoracic echocardiogram to assess current ejection fraction. 2. Non-ST elevation myocardial infarction type 2. Continue medical management. Resume aspirin 81 mg daily. Continue Bystolic and Crestor. 3. Acute kidney injury on chronic kidney disease. Suspect the patient was over diuresed given elevated BUN. We will initiate low volume normal saline at 50 mL/h and avoid nephrotoxic agents. Repeat creatinine in the a.m. 4. Generalized weakness. Suspect multifactorial process in conjunction with over diuresis and potential hypotension. Check orthostatic vital signs. Continue low volume IV fluids. PT evaluation for functional assessment. 5. Hypokalemia. Continue potassium chloride supplementation. Serial potassium monitoring. 6. Prophylaxis. Sequential compression devices while in bed. Pepcid 20 mg p.o. b.i.d. PT evaluation for functional assessment. 7. Code status is full. Surrogate medical decision maker is the patient's spouse. Job ID: [id number]
[2020-02-20] MEDS ORDERED: Ondansetron PF 4 MG/2 ML Vial IVP PRN (21:44)
[2020-02-20] MEDS ORDERED: Acetaminophen 500 MG TAB PO PRN (21:44)
[2020-02-20] MEDS ORDERED: Ondansetron ODT 4 MG TAB SL PRN (21:44)
[2020-02-20] MEDS ORDERED: Sodium Chloride 0.9% 1,000 ML IV SCH (21:44)
[2020-02-20] MEDS ORDERED: Apixaban 5 MG TAB PO SCH (23:00)
[2020-02-20] MEDS ORDERED: Potassium Chloride 20 MEQ TAB PO SCH (23:00)
[2020-02-20] MEDS ORDERED: Apixaban 2.5 MG TAB PO SCH (23:15)
[2020-02-21] MEDS ORDERED: Famotidine 20 MG TAB ONE
[2020-02-21] MEDS: Famotidine 20 MG TAB PO SCH ×2 (00:02→20:22)
[2020-02-21 01:35] LABS: SARS-CoV-2 MS2 Positive; SARS-CoV-2 N Gene Negative; SARS-CoV-2 S Gene Negative; SARS-CoV-2 by NAA Not Detected (NotDetected); SARS-CoV-2 orf1ab Negative
[2020-02-21 05:03] LABS: #Lymphocytes 0.1 thou/uL (1.20-3.40); #Monocytes 0.1 thou/uL (0.11-0.59); #Neutrophils 5.4 thou/uL (1.40-6.50); %Basophils 0.8 % (0.0-1.0); %Eosinophils 0.2 % (0.0-10.0); %Lymphocytes 1.2 % (21.0-51.0); %Neutrophils 96.8 % (42.0-75.0); Hemoglobin 15.7 g/dL (14.0-18.0); Mean Corpuscular HGB CONC 33.2 g/dL (32.0-36.0); Mean Corpuscular Hemoglobin 34.2 pg (27.0-31.0); Mean Platelet Volume 8.2 fL (7.4-10.4); Platelet Count 255 thou/uL (130-400); White Blood Cell (WBC) Count 5.6 thou/uL (4.8-10.8)
[2020-02-21 05:16] LABS: Anion Gap 20 mmol/L (10-20); BUN (Urea Nitrogen) 51 mg/dL (8.4-25.7); Calc. Creatinine Clearance 23 mL/min (70-130); Calcium 9.1 mg/dL (7.8-10.44); Carbon Dioxide 35 mmol/L (23-31); Chloride 89 mmol/L (98-107); Glucose 116 mg/dL (83-110); Magnesium 2.5 mg/dL (1.6-2.6); Sodium 141 mmol/L (136-145)
[2020-02-21 05:22] LABS: Potassium 2.9 mmol/L (3.5-5.1)
[2020-02-21] MEDS ORDERED: Furosemide 20 MG/2 ML VIAL SLOW IVP SCH (06:00)
[2020-02-21] MEDS: Potassium Chloride 20 MEQ TAB PO SCH ×2 (06:40→16:10)
[2020-02-21] MEDS ORDERED: Potassium Chloride 20 MEQ TAB PO SCH (10:00)
[2020-02-21] MEDS ORDERED: Spironolactone 25 MG TAB PO SCH (10:30)
[2020-02-21] MEDS: Ezetimibe 10 MG TAB PO SCH (10:42)
[2020-02-21] MEDS: Nebivolol HCl 5 MG TAB PO SCH (10:42)
[2020-02-21] MEDS: Apixaban 2.5 MG TAB PO SCH ×2 (10:43→20:22)
[2020-02-21] MEDS: Ascorbic Acid 500 mg Chewable Tablet PO SCH ×2 (10:43→20:22)
[2020-02-21] MEDS: Aspirin 81 mg Enteric Coated Tablet PO SCH (10:43)
--- NOTE | 2020-02-21 11:33 | CON ---
DATE OF CONSULTATION: HISTORY: Robert Eastman is an 89-year-old white male whom I have been following since January 2003 when he was originally referred for exertional fatigue. 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 Ultimately, he underwent pacemaker placement. In 2010, he underwent replacement of his pacemaker. Also in June 2006, he underwent cardiac catheterization and had a 50% first diagonal, followed by a 60% first diagonal lesion, but otherwise calcified but not stenotic coronary arteries. He has had problems with exertional dyspnea and has diastolic heart failure. He has been increasingly diuresed. He continues to have peripheral edema as well as a persistent right pleural effusion. He did undergo thoracentesis in December 2019 and this was a transudate. It is felt by Dr. Watkins that this is a loculated pleural effusion. He has history of paroxysmal atrial fibrillation on his pacemaker, although at times, this may be due to atrial tachycardia with a consistent rate of 175 per minute in the atrium. He was placed on Multaq for the atrial fibrillation, but developed increasing edema. Multaq was discontinued. He was placed on amiodarone and since that time, he has not had any real significant atrial arrhythmias. He is on low-dose Eliquis. He has continued to have exertional dyspnea and peripheral edema, although today looks better than he has for a long time. He now is admitted for weakness and fatigue. He denies having any chest discomfort. PAST MEDICAL HISTORY: History of moderate left ventricular dysfunction improved to ejection fraction of 50% to 55%, diastolic dysfunction, hypertension, hypercholesterolemia, muscle aches with Lipitor. MEDICATIONS: 1. Amiodarone 200 mg b.i.d. 2. Eliquis 2.5 mg b.i.d. 3. Aspirin 81 daily. 4. Calcium carbonate p.r.n. 5. Zetia 2.5 mg daily. 6. Furosemide 80 mg q.a.m., 40 mg q.p.m. 7. Bystolic 2.5 daily. 8. Protonix 40 b.i.d. 9. KCl 10 mEq b.i.d. 10. Rosuvastatin 10 mg daily. ALLERGIES: DANICA INHIBITORS CAUSE COUGH. SOCIAL HISTORY: He does not smoke or drink. 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 FAMILY HISTORY: Negative for coronary artery disease. REVIEW OF SYSTEMS: A 10-point review of systems unremarkable except for poor appetite and difficulty swallowing. PHYSICAL EXAMINATION: VITAL SIGNS: Blood pressure 137/63, pulse 72. HEENT: PERRL. NECK: Supple. CHEST: Reveals decreased breath sounds at the right base, otherwise clear. CARDIOVASCULAR: S1 and S2 normal without any S3, S4, or murmurs. ABDOMEN: Normal bowel sounds without tenderness. EXTREMITIES: Reveal 1+ pretibial edema, which is less than he has had recently. NEUROLOGIC: Grossly intact. SKIN: Warm and dry. LABORATORY DATA: EKG reveals A-V pacing. Chest x-ray reveals right pleural effusion. Sodium 141, potassium 2.9, chloride 89, carbon dioxide 35, BUN 51, creatinine 1.92. Troponin I 0.407. TSH is normal. BNP 331.0. Hemoglobin 15.7, hematocrit 47.3, white count 5600, platelets 255,000. COVID negative. IMPRESSION: 1. Weakness secondary to hypokalemia. 2. Diastolic dysfunction. He has had improvement in his peripheral edema and mild improvement in his dyspnea. 3. Status post dual-chamber pacemaker. 4. Mild coronary artery disease with 50% followed by 60% first diagonal lesion. 5. Hcd-CP-vgdbsupot myocardial infarction, type II. 6. Paroxysmal atrial fibrillation under good control with amiodarone without significant episodes on his pacemaker. 7. Atrial tachycardia under good control. 8. Hypertension. 9. Hypercholesterolemia, well controlled. 10. Spinal stenosis. 11. Cough due to DANICA inhibitor. 12. Chronic kidney disease. PLAN: The patient will continue to remain on furosemide. However, reduce his dose to 40 mg b.i.d. and had spironolactone for better help with controlling his hypokalemia. I will continue to follow the patient with you. Job ID: [id number]
[2020-02-21] MEDS: Furosemide 40 MG TAB PO SCH (16:11)
--- NOTE | 2020-02-21 16:48 | PDOC.HOSPP ---
- Subjective Encounter Date: 02/21/20 Encounter Time: 11:30 Subjective: Patient seen his is at bedside; his family law mediator is Dr. Lui and who has just rounded on him. - Objective Vital Signs & Weight: Vital Signs (12 hours) Temp Pulse Pulse Pulse Resp BP BP 02/21/20 13:50 60 68 103/54 L 111/53 L 02/21/20 11:35 98.5 F 66 20 02/21/20 07:40 02/21/20 07:37 98 F 72 18 BP Pulse Ox 02/21/20 13:50 02/21/20 11:35 129/61 99 02/21/20 07:40 97 02/21/20 07:37 137/63 97 Weight Admit Weight 132 lb 12.8 oz Weight 132 lb 12.8 oz I&O: 02/20/20 02/21/20 02/22/20 06:59 06:59 06:59 Output Total 120 Balance -120 Result Diagrams: 02/21/20 04:31 02/21/20 04:31 Hospitalist ROS - Medication Medications: Active Medications Generic Name Dose Route Start Last Admin Trade Name Freq PRN Reason Stop Dose Admin Apixaban 2.5 mg 02/21/20 09:00 02/21/20 10:43 Apixaban 2.5 Mg Tab PO 2.5 mg BID GIORGI Administration Ascorbic Acid 500 mg 02/21/20 09:00 02/21/20 10:43 Ascorbic Acid 500 Mg Chewable Tablet PO 500 mg BID GIORGI Administration Aspirin 81 mg 02/21/20 09:00 02/21/20 10:43 Aspirin 81 Mg Enteric Coated Tablet PO 81 mg DAILY GIORGI Administration Ezetimibe 2.5 mg 02/21/20 09:00 02/21/20 10:42 Ezetimibe 10 Mg Tab PO 2.5 mg DAILY GIORGI Administration Famotidine 20 mg 02/20/20 21:44 02/21/20 00:02 Famotidine 20 Mg Tab PO 20 mg Q24HR GIORGI Administration Furosemide 40 mg 02/21/20 14:00 02/21/20 16:11 Furosemide 40 Mg Tab PO 40 mg 0900,1400 GIORGI Administration Nebivolol 2.5 mg 02/21/20 09:00 02/21/20 10:42 Nebivolol Hcl 5 Mg Tab PO 2.5 mg DAILY GIORGI Administration Potassium Chloride 40 meq 02/21/20 08:00 02/21/20 16:10 Potassium Chloride 20 Meq Tab PO 02/21/20 23:59 40 meq BID-WM GIORGI Administration - Exam General Appearance: NAD, awake alert Eye: PERRL ENT: normocephalic atraumatic Neck: supple Heart: RRR, normal peripheral pulses Respiratory: CTAB, normal chest expansion Gastrointestinal: soft, normal bowel sounds Extremities: 1+ LE edema Neurological: cranial nerve grossly intact, no focal deficits Musculoskeletal: generalized weakness Psychiatric: A&O x 3 Hosp A/P - Plan Acute on chronic diastolic CHF exacerbation -Was on high doses of diuretics at home the Lasix reduced to 40 mg twice a day along with the spironolactone added and will continue to monitor his potassium. Severe hypokalemia--being replaced Coronary artery disease with the lesions in the 60% in the first diagonal artery NSTEMI type II metabolic mismatch Paroxysmal atrial fibrillation and atrial tachycardia controlled with amiodarone Hypertension Echo shows EF of 55% there is a pacemaker wire in the right ventricle mild mitral regurgitation Weakness multifactorial-- with being on aggressive diuretic regimen as well as deconditioning in this elderly. Disposition discussed with the patient and and they prefer to go home.
[2020-02-21 17:38] LABS: Potassium 3.3 mmol/L (3.5-5.1)
[2020-02-21] MEDS: Rosuvastatin 10 MG TAB PO SCH (20:22)
--- NOTE | 2020-02-21 20:28 | PQF ---
CLINICAL DOCUMENTATION CLARIFICATION FORM: Dear Dr. Emi Peña Date: 02/21/20202014 Please exercise your independent, professional judgment in responding to the clarification form. Clinical indicators are provided on the bottom of this form f In addition, please specify: Present on Admission (POA): [ ] Yes [ ] No [x ] Unable to determine For continuity of documentation, please document condition throughout progress notes and discharge summary. Thank You. To be completed by CDI/Coding staff for physician review: CLINICAL INDICATORS - SIGNS / SYMPTOMS / LABS / RESULTS AND LOCATION IN MR Nutrition Diagnosis Malnutrition Related to poor appetite, CHF, impaired swallow as evidenced by 's report of patient taking limited PO for 1 month with 21.9 % weight loss in the last 11 months and moderate muscle wasting and fat loss both present suggestive of severe malnutrition in the context of chronic illness. ( RD assessment) 02/20 RISK FACTORS / RESULTS AND LOCATION IN MR Advanced age, increased fatigue, weakness in context of Diastolic CHF ( H&P/Vince) 02/19 TREATMENT / RESULTS AND LOCATION IN MR Dietary consult 02/21/20 Recommend Nepro BID 02/20 Moderate Malnutrition (in acute illness) Energy Intake: <75% of estimated energy requirement for > 7 days Weight Loss: 1-2%/1 week; 5%/ 1 month; 7.5%/3 months Other: mild body fat loss; mild muscle mass loss; mild fluid accumulation; Severe Malnutrition (in acute illness) Energy Intake: _ 50% of estimated energy requirement for _ 5 days Weight Loss: >2%/1 week; >5%/1 month; >7.5%/3 months Other: moderate body fat loss; moderate muscle mass loss; moderate- severe fluid accumulation; measurably reduced rockboard lather strength Moderate Malnutrition (in chronic illness) Energy Intake: <75% of estimated energy requirement for _1 month Weight Loss: 5%/1 month; 7.5%/3 months; 10%/6 months; 20%/1 year Other: mild body fat loss; mild muscle mass loss; mild fluid accumulation Severe Malnutrition (in chronic illness) Energy Intake: _75% of estimated energy requirement for _1 month Weight Loss: >5%/1 month; >7.5%/3 months; >10%/6 months; >20%/1 year Other: severe body fat loss; severe muscle mass loss; severe fluid accumulation; measurably reduced rockboard lather strength Thank you! CDS Signature: Mandy Gore RN Phone #: [phone] Date:02/21/20 This is a permanent part of the Medical Record [facility]
[2020-02-22 04:38] LABS: Band 15 % (5-11); Hemoglobin 14.3 g/dL (14.0-18.0); Lymphocytes 9 % (21-51); MDiff Complete? YES; Macrocytosis SLIGHT = 6-15 cells (100X) (0-5/hpf); Mean Corpuscular HGB CONC 32.4 g/dL (32.0-36.0); Mean Corpuscular Hemoglobin 33.2 pg (27.0-31.0); Mean Platelet Volume 8.5 fL (7.4-10.4); Monocytes 13 % (0-10); Neutrophil 63 % (42-75); Platelet Count 201 thou/uL (130-400); Platelet Morphology Comment Appears Adequate; RBC Distribution Width 14.4 % (11.5-14.5); Red Blood Cell (RBC) Count 4.29 mill/uL (4.70-6.10); White Blood Cell (WBC) Count 18.7 thou/uL (4.8-10.8)
[2020-02-22] MEDS ORDERED: FLU VACC QS2020-21(65YR UP)/PF 240 MCG/0.7 ML SYRINGE IM ONE (09:00)
[2020-02-22] MEDS: Spironolactone 25 MG TAB PO SCH (10:42)
[2020-02-22] MEDS: Aspirin 81 mg Enteric Coated Tablet PO SCH (10:42)
[2020-02-22] MEDS: Ezetimibe 10 MG TAB PO SCH (10:43)
[2020-02-22] MEDS: Ascorbic Acid 500 mg Chewable Tablet PO SCH ×2 (10:43→20:45)
[2020-02-22] MEDS: Cholecalciferol 1,000 UNITS (25 MCG) TAB PO SCH (10:43)
[2020-02-22] MEDS: Apixaban 2.5 MG TAB PO SCH ×2 (10:44→20:45)
[2020-02-22] MEDS: Nebivolol HCl 5 MG TAB PO SCH (10:45)
[2020-02-22] MEDS: Furosemide 40 MG TAB PO SCH ×2 (10:45→16:10)
--- NOTE | 2020-02-22 12:19 | RAD ---
CHEST 1 VIEW: Date: 02/22/2020 COMPARISON: 02/20/2020. HISTORY: Dyspnea. Elevated white blood cell count. FINDINGS: Stable left-sided transvenous pacemaker. Stable heart size and atherosclerosis. Persistent pleural an d parenchymal changes in the right lung base. Chronic changes in the left lung. No pneumothorax or ac [place] osseous abnormalities. IMPRESSION: No significant interval change. POS: [facility]
[2020-02-22 15:27] LABS: Bilirubin Negative (Negative); Blood, Urine Negative (Negative); Clarity Clear (Clear); Glucose, Urine (Dipstick) Normal (Negative); Ketone, Urine Negative (Negative); Leukocyte Negative Leu/uL (Negative); Nitrite Negative (Negative); Protein, Urine (Dipstick) 20 mg/dL (Neg-Trace); Specific Gravity, Urine 1.013 (1.002-1.036)
--- NOTE | 2020-02-22 16:11 | PDOC.HOSPP ---
- Subjective Encounter Date: 02/22/20 Encounter Time: 11:10 Subjective: Patient appears little somnolent and not much actual but he is responding appropriately. He states that he is little tired and sleepy. His vitals are stable. X-ray did not show any interval change he is satting 93% in the room air. Screening for Covid negative. His weight remains more or less same like yesterday. His output is also not much negative the diuresis - Objective Vital Signs & Weight: Vital Signs (12 hours) Temp Pulse Pulse Resp BP BP Pulse Ox 02/22/20 16:06 98.8 F 60 18 115/59 L 93 L 02/22/20 12:15 60 112/55 L 02/22/20 11:17 97.5 F L 60 20 103/59 L 97 02/22/20 07:36 92 L 02/22/20 07:28 97.4 F L 60 24 H 107/54 L 92 L Pulse Ox 02/22/20 16:06 02/22/20 12:15 96 02/22/20 11:17 02/22/20 07:36 02/22/20 07:28 Weight Admit Weight 132 lb 12.8 oz Weight 131 lb 6.4 oz I&O: 02/21/20 02/22/20 02/23/20 06:59 06:59 06:59 Intake Total 300 Output Total 120 150 Balance -120 150 Result Diagrams: 02/22/20 03:35 02/21/20 17:11 Hospitalist ROS - Medication Medications: Active Medications Generic Name Dose Route Start Last Admin Trade Name Tatoq PRN Reason Stop Dose Admin Apixaban 2.5 mg 02/21/20 09:00 02/22/20 10:44 Apixaban 2.5 Mg Tab PO 2.5 mg BID [facility] Administration Ascorbic Acid 500 mg 02/21/20 09:00 02/22/20 10:43 Ascorbic Acid 500 Mg Chewable Tablet PO 500 mg BID [facility] Administration Aspirin 81 mg 02/21/20 09:00 02/22/20 10:42 Aspirin 81 Mg Enteric Coated Tablet PO 81 mg DAILY [facility] Administration Cholecalciferol 1,000 units 02/22/20 09:00 02/22/20 10:43 Cholecalciferol 1,000 Units (25 Mcg) Tab PO 1,000 units [facility] Administration Ezetimibe 2.5 mg 02/21/20 09:00 02/22/20 10:43 Ezetimibe 10 Mg Tab PO 2.5 mg DAILY [facility] Administration Famotidine 20 mg 02/20/20 21:44 02/21/20 20:22 Famotidine 20 Mg Tab PO 20 mg Q24HR [facility] Administration Furosemide 40 mg 02/21/20 14:00 02/22/20 10:45 Furosemide 40 Mg Tab PO 40 mg 0900,1400 [facility] Administration Nebivolol 2.5 mg 02/21/20 09:00 02/22/20 10:45 Nebivolol Hcl 5 Mg Tab PO 2.5 mg DAILY [facility] Administration Rosuvastatin Calcium 10 mg 02/21/20 21:00 02/21/20 20:22 Rosuvastatin 10 Mg Tab PO 10 mg HS [facility] Administration Spironolactone 25 mg 02/22/20 08:00 02/22/20 10:42 Spironolactone 25 Mg Tab PO 25 mg QAM-WM [facility] Administration - Exam General Appearance: awake alert, ill appearing Eye: PERRL ENT: normocephalic atraumatic Neck: supple Heart: RRR Respiratory: CTAB Gastrointestinal: soft, normal bowel sounds Neurological: cranial nerve grossly intact, no focal deficits Psychiatric: A&O x 3 Hosp A/P - Plan Acute on chronic diastolic CHF exacerbation -Was on high doses of diuretics at home the Lasix reduced to 40 mg twice a day along with the spironolactone added and will continue to monitor his potassium. Severe hypokalemia--being replaced Coronary artery disease with the lesions in the 60% in the first diagonal artery NSTEMI type II metabolic mismatch Paroxysmal atrial fibrillation and atrial tachycardia controlled with amiodarone Hypertension Echo shows EF of 55% there is a pacemaker wire in the right ventricle mild mitral regurgitation Weakness multifactorial-- with being on aggressive diuretic regimen as well as deconditioning in this elderly. Disposition discussed with the patient and and they prefer to go home. 16th Continue the current management. Patient is quite fragile not sure he is able to go home -would likely benefit with a transient cardiac rehab.
--- NOTE | 2020-02-22 20:27 | CT ---
CT OF THE BRAIN WITHOUT CONTRAST: 02/22/20 INDICATIONS: Altered mental status and changes in speech and swallowing. COMPARISON: Prior exam dated 04/09/19. FINDINGS: There is generalized cerebral and cerebellar atrophy with severe chronic small vessel white matter is chemic change. The septum pellucidum and third ventricle are midline. No definite acute infarct, hemo rrhage, or hydrocephalus is present. The paranasal sinuses are clear. Mastoid air cells are clear. Sk ull is intact. IMPRESSION: No acute intracranial abnormality. POS: BH
[2020-02-22] MEDS: Rosuvastatin 10 MG TAB PO SCH (20:45)
[2020-02-22] MEDS: Famotidine 20 MG TAB PO SCH (20:46)
[2020-02-23 05:00] LABS: Anion Gap 19 mmol/L (10-20); BUN (Urea Nitrogen) 63 mg/dL (8.4-25.7); Calc. Creatinine Clearance 21 mL/min (70-130); Calcium 8.4 mg/dL (7.8-10.44); Carbon Dioxide 30 mmol/L (23-31); Chloride 91 mmol/L (98-107); Glucose 95 mg/dL (83-110); Sodium 137 mmol/L (136-145)
[2020-02-23 05:08] LABS: Potassium 2.9 mmol/L (3.5-5.1)
[2020-02-23] MEDS ORDERED: Potassium Chloride 20 MEQ in Premix Bag 1 BAG IVPB SCH (05:45)
[2020-02-23] MEDS ORDERED: Spironolactone 25 MG TAB PO SCH (09:00)
--- NOTE | 2020-02-23 09:40 | PQF ---
CLINICAL DOCUMENTATION CLARIFICATION FORM: Dear Dr.S. Peña Date: 02/22/20 Please exercise your independent, professional judgment in responding to the clarification form. Clinical indicators are provided on the bottom of this form for your review. Please check appropriate box(es): [ ] Protein Calorie Malnutrition: [ ] Mild [ ] Moderate [ ] Severe [ ] Other Malnutrition (please specify) [ ] Underweight without malnutrition [ ] Cachexia [ ] Other diagnosis [ x ] Unable to determine In addition, please specify: Present on Admission (POA): [ ] Yes [ ] No [ ] Unable to determine For continuity of documentation, please document condition throughout progress notes and discharge summary. Thank You. To be completed by CDI/Coding staff for physician review: CLINICAL INDICATORS - SIGNS / SYMPTOMS / LABS / RESULTS AND LOCATION IN MR Nutrition diagnosis Malnutrition Related to poor appetite, CHF, impaired swallow as evidenced by 's report of patient intake limited PO for 1 month with 21.9 % weight loss in the last 11 months and moderate muscle wasting and fat loss both present suggestive of severe malnutrition in the context of chronic illness (RD assessment) 02/20 RISK FACTORS / RESULTS AND LOCATION IN MR Advanced age, increased fatigue, weakness in context of Diastolic CHF ( H&P/Vince) 02/19) TREATMENT / RESULTS AND LOCATION IN MR Dietary consult (02/20) Recommend Nepro BID ( 02/20) Moderate Malnutrition (in acute illness) Energy Intake: <75% of estimated energy requirement for > 7 days Weight Loss: 1-2%/1 week; 5%/ 1 month; 7.5%/3 months Other: mild body fat loss; mild muscle mass loss; mild fluid accumulation; Severe Malnutrition (in acute illness Energy Intake: = 50% of estimated energy requirement for = 5 days Weight Loss: >2%/1 week; >5%/1 month; >7.5%/3 months Other: moderate body fat loss; moderate muscle mass loss; moderate- severe fluid accumulation; measurably reduced stave planer tender strength Moderate Malnutrition (in chronic illness) Energy Intake: <75% of estimated energy requirement for =1 month Weight Loss: 5%/1 month; 7.5%/3 months; 10%/6 months; 20%/1 year Other: mild body fat loss; mild muscle mass loss; mild fluid accumulation Severe Malnutrition (in chronic illness) Energy Intake: =75% of estimated energy requirement for =1 month Weight Loss: >5%/1 month; >7.5%/3 months; >10%/6 months; >20%/1 year Other: severe body fat loss; severe muscle mass loss; severe fluid accumulation; measurably reduced stave planer tender strength Thank you! CDS Signature: Mandy Gore Phone #: [phone] Date: 02/23/2020 This is a permanent part of the Medical Record [facility]
[2020-02-23] MEDS: Spironolactone 25 MG TAB PO SCH (09:50)
[2020-02-23 10:10] LABS: Potassium 3.2 mmol/L (3.5-5.1)
[2020-02-23] MEDS ORDERED: Potassium Chloride 40 MEQ in Sodium Chloride 0.9% 250 ML 250 ML IVPB SCH (12:15)
--- NOTE | 2020-02-23 12:40 | PDOC.HOSPP ---
- Subjective Encounter Date: 02/23/20 Encounter Time: 12:30 Subjective: Patient returned from the modified barium swallow study he has a severe risk for aspiration. I talked to the daughter in [place] who is the case assembler at [phone] Discussed his current medical conditions including electrolyte abnormality leukocytosis and aspiration risk. I discussed about PEG tube evaluation versus comfort care approach. Daughter wants to discuss with the mother and palliative on which direction to go. Meanwhile will a try to correct his electrolyte abnormality. Daughter also states that her mother is not in a good condition to take care of the spouse as well as to understand his medical conditions. The option of placing him in chcf facility discussed and her daughter is concerned about the Covid nature and preferred to be her father to be at home etc... - Objective Vital Signs & Weight: Vital Signs (12 hours) Temp Pulse Resp BP Pulse Ox 02/23/20 12:00 97.4 F L 61 22 H 114/55 L 96 02/23/20 07:48 97.5 F L 61 18 107/53 L 94 L 02/23/20 04:00 98.4 F 60 16 116/55 L 93 L Weight Admit Weight 132 lb 12.8 oz Weight 127 lb 14.4 oz I&O: 02/22/20 02/23/20 02/24/20 06:59 06:59 06:59 Intake Total 300 0 Output Total 150 250 Balance 150 -250 Result Diagrams: 02/22/20 03:35 02/23/20 09:43 Hospitalist ROS - Medication Medications: Active Medications Generic Name Dose Route Start Last Admin Trade Name Freq PRN Reason Stop Dose Admin Apixaban 2.5 mg 02/21/20 09:00 02/22/20 20:45 Apixaban 2.5 Mg Tab PO Not Given BID [facility]ORGI Ascorbic Acid 500 mg 02/21/20 09:00 02/22/20 20:45 Ascorbic Acid 500 Mg Chewable Tablet PO Not Given BID [facility]GI Aspirin 81 mg 02/21/20 09:00 02/22/20 10:42 Aspirin 81 Mg Enteric Coated Tablet PO 81 mg DAILY [facility] Administration Cholecalciferol 1,000 units 02/22/20 09:00 02/22/20 10:43 Cholecalciferol 1,000 Units (25 Mcg) Tab PO 1,000 units [facility] Administration Ezetimibe 2.5 mg 02/21/20 09:00 02/22/20 10:43 Ezetimibe 10 Mg Tab PO 2.5 mg DAILY [facility] Administration Famotidine 20 mg 02/20/20 21:44 02/22/20 20:46 Famotidine 20 Mg Tab PO Not Given Q24HR [facility] Nebivolol 2.5 mg 02/21/20 09:00 02/22/20 10:45 Nebivolol Hcl 5 Mg Tab PO 2.5 mg DAILY [facility] Administration Rosuvastatin Calcium 10 mg 02/21/20 21:00 02/22/20 20:45 Rosuvastatin 10 Mg Tab PO Not Given HS [facility]ORGI - Exam General Appearance: NAD, awake alert Eye: PERRL ENT: normocephalic atraumatic Neck: supple Heart: RRR, normal peripheral pulses Respiratory: CTAB, normal chest expansion Gastrointestinal: soft, normal bowel sounds Neurological: cranial nerve grossly intact Musculoskeletal: generalized weakness Psychiatric: A&O x 3 Hosp A/P - Plan Acute on chronic diastolic CHF exacerbation Status post dual-chamber pacemaker Mild coronary artery disease with 50% lesions in the diagonal artery NSTEMI type II Paroxysmal atrial fibrillation and atrial tachycardia on amiodarone and Eliquis Hypertension --Echo shows EF of 55% there is a pacemaker wire in the right ventricle mild mitral regurgitation -Was on high doses of diuretics at home the Lasix reduced to 40 mg twice a day and then to once a day along with the spironolactone added and will continue to monitor his potassium. Severe hypokalemia--being replaced Weakness multifactorial-- with being on aggressive diuretic regimen as well as deconditioning in this elderly. 17th Dysphagia with a severe risk for aspiration Elevated white count/leukocytosis and chest x-ray showing right base atelectasis versus chronic changes -Starting him on empiric antibiotic and follow the white count. modified barium swallow study he has a severe risk for aspiration. I talked to the daughter in [place] who is the case assembler at [phone] Discussed his current medical conditions including electrolyte abnormality leukocytosis and aspiration risk. I discussed about PEG tube evaluation versus comfort care approach. Daughter wants to discuss with the mother and palliative on which direction to go. Meanwhile will a try to correct his electrolyte abnormality. Daughter also states that her mother is not in a good condition to take care of the spouse as well as to understand his medical conditions. The option of placing him in chcf facility discussed and her daughter is concerned about the Covid nature and preferred to be her father to be at home etc...
[2020-02-23] MEDS ORDERED: Potassium Chloride 40 MEQ in Premix Bag 1 BAG IVPB SCH (12:45)
[2020-02-23] MEDS: Furosemide 40 MG TAB PO SCH (12:48)
[2020-02-23] MEDS: cefTRIAXone\\ROCEPHIN 1 GM in Sodium Chloride 0.9% 100 ML IVPB SCH (13:16)
[2020-02-23 13:22] LABS: Band 47 % (5-11); Hemoglobin 15.3 g/dL (14.0-18.0); MDiff Complete? YES; Macrocytosis SLIGHT = 6-15 cells (100X) (0-5/hpf); Mean Corpuscular HGB CONC 32.7 g/dL (32.0-36.0); Mean Platelet Volume 9.2 fL (7.4-10.4); Monocytes 4 % (0-10); Neutrophil 47 % (42-75); Platelet Count 156 thou/uL (130-400); Platelet Morphology Comment Appears Adequate; Polychromasia SLIGHT = 2-3 cells (100X) (0-2/hpf); RBC Distribution Width 14.2 % (11.5-14.5); Reactive Lymphocytes 2 % (0-10); Red Blood Cell (RBC) Count 4.62 mill/uL (4.70-6.10); Target Cells SLIGHT = 2-5 cells (100X) (0-1/hpf); White Blood Cell (WBC) Count 14.5 thou/uL (4.8-10.8)
--- NOTE | 2020-02-23 16:10 | RAD ---
Modified Barium Swallow CLINICAL HISTORY: Dysphagia, unspecified R13.10 with feeding difficulties R 63.3 FINDINGS: The examination is performed under real-time fluoroscopy under guidance of the speech ther apy department. 2.2 minutes with a total exposure of 0.849 koehler percent centimeter square. There were episodes of tracheal aspiration penetration with thin barium liquids, barium impregnated nectar and barium impregnated honey. The patient had repeated episodes of tracheal aspiration with residuals from all consistencies within the piriform sinuses. Patient had premature spill with all co nsistencies. The patient had episodes of tracheal penetration with barium impregnated pudding particularly with residuals in the piriform sinuses. IMPRESSION: Tracheal aspiration and penetration as above. Reference speech pathology report for further details.
[2020-02-23] MEDS: Apixaban 2.5 MG TAB PO SCH ×2 (16:37→21:53)
[2020-02-23] MEDS: Ascorbic Acid 500 mg Chewable Tablet PO SCH ×2 (16:37→21:53)
[2020-02-23] MEDS: Nebivolol HCl 5 MG TAB PO SCH (17:43)
[2020-02-23] MEDS: Amiodarone 200 MG TAB PO SCH (17:44)
[2020-02-23] MEDS: Aspirin 81 mg Enteric Coated Tablet PO SCH (17:44)
[2020-02-23] MEDS: Ezetimibe 10 MG TAB PO SCH (17:45)
[2020-02-23] MEDS: Famotidine 20 MG TAB PO SCH (21:53)
[2020-02-23] MEDS: Rosuvastatin 10 MG TAB PO SCH (21:53)
[2020-02-24 05:13] LABS: Anion Gap 15 mmol/L (10-20); BUN (Urea Nitrogen) 67 mg/dL (8.4-25.7); Calc. Creatinine Clearance 23 mL/min (70-130); Calcium 8.6 mg/dL (7.8-10.44); Carbon Dioxide 34 mmol/L (23-31); Chloride 94 mmol/L (98-107); Glucose 112 mg/dL (83-110); Potassium 3.3 mmol/L (3.5-5.1); Sodium 140 mmol/L (136-145)
[2020-02-24 06:19] LABS: Band 15 % (5-11); Hemoglobin 14.8 g/dL (14.0-18.0); Lymphocytes 3 % (21-51); MDiff Complete? YES; Macrocytosis SLIGHT = 6-15 cells (100X) (0-5/hpf); Mean Corpuscular HGB CONC 32.1 g/dL (32.0-36.0); Mean Corpuscular Hemoglobin 33.7 pg (27.0-31.0); Mean Platelet Volume 9.7 fL (7.4-10.4); Monocytes 7 % (0-10); Neutrophil 75 % (42-75); Platelet Count 142 thou/uL (130-400); RBC Distribution Width 14.3 % (11.5-14.5); Red Blood Cell (RBC) Count 4.39 mill/uL (4.70-6.10); White Blood Cell (WBC) Count 15.5 thou/uL (4.8-10.8)
[2020-02-24] MEDS ORDERED: Furosemide 40 MG TAB PO SCH ×3 (07:30→11:15)
[2020-02-24] MEDS ORDERED: Spironolactone 100 MG TAB PO SCH ×3 (08:00→11:15)
[2020-02-24] MEDS ORDERED: Potassium Chloride 40 MEQ in Premix Bag 1 BAG IVPB SCH (09:00)
[2020-02-24] MEDS: Nebivolol HCl 5 MG TAB PO SCH (09:52)
[2020-02-24] MEDS: Amiodarone 200 MG TAB PO SCH (09:59)
[2020-02-24] MEDS: Apixaban 2.5 MG TAB PO SCH ×2 (09:59→20:22)
[2020-02-24] MEDS: Cholecalciferol 1,000 UNITS (25 MCG) TAB PO SCH (09:59)
[2020-02-24] MEDS: Ezetimibe 10 MG TAB PO SCH (09:59)
[2020-02-24] MEDS: Aspirin 81 mg Enteric Coated Tablet PO SCH (09:59)
[2020-02-24] MEDS: Ascorbic Acid 500 mg Chewable Tablet PO SCH ×2 (09:59→20:22)
[2020-02-24] MEDS ORDERED: Nebivolol HCl 5 MG TAB PO SCH ×2 (10:47→11:15)
[2020-02-24] MEDS: cefTRIAXone\\ROCEPHIN 1 GM in Sodium Chloride 0.9% 100 ML IVPB SCH (12:49)
--- NOTE | 2020-02-24 13:25 | PDOC.HOSPP ---
- Subjective Encounter Date: 02/24/20 Encounter Time: 09:40 Subjective: Patient is having his soft diet this morning he is very oriented he said Dr. Lui came by. He which to him medically smokes. He is comfortable eating soft diet at this time. - Objective Vital Signs & Weight: Vital Signs (12 hours) Temp Pulse Resp BP Pulse Ox 02/24/20 11:24 97.3 F L 68 17 120/59 L 98 02/24/20 07:49 97.3 F L 62 16 119/56 L 95 02/24/20 04:00 95.9 F L 61 14 118/56 L 95 Weight Admit Weight 132 lb 12.8 oz Weight 131 lb 8 oz I&O: 02/23/20 02/24/20 02/25/20 06:59 06:59 06:59 Intake Total 0 980 Output Total 250 525 Balance -250 455 Result Diagrams: 02/24/20 04:13 02/24/20 04:13 Hospitalist ROS - Medication Medications: Active Medications Generic Name Dose Route Start Last Admin Trade Name Raj PRN Reason Stop Dose Admin Amiodarone HCl 200 mg 02/23/20 09:00 02/24/20 09:59 Amiodarone 200 Mg Tab PO 200 mg DAILY [facility] Administration Apixaban 2.5 mg 02/21/20 09:00 02/24/20 09:59 Apixaban 2.5 Mg Tab PO 2.5 mg BID [facility]GI Administration Ascorbic Acid 500 mg 02/21/20 09:00 02/24/20 09:59 Ascorbic Acid 500 Mg Chewable Tablet PO 500 mg BID [facility] Administration Aspirin 81 mg 02/21/20 09:00 02/24/20 09:59 Aspirin 81 Mg Enteric Coated Tablet PO 81 mg DAILY [facility] Administration Cholecalciferol 1,000 units 02/22/20 09:00 02/24/20 09:59 Cholecalciferol 1,000 Units (25 Mcg) Tab PO 1,000 units MWF [facility] Administration Ezetimibe 2.5 mg 02/21/20 09:00 02/24/20 09:59 Ezetimibe 10 Mg Tab PO 2.5 mg DAILY [facility] Administration Famotidine 20 mg 02/20/20 21:44 02/23/20 21:53 Famotidine 20 Mg Tab PO 20 mg Q24HR [facility] Administration Furosemide 40 mg 02/24/20 11:15 02/24/20 11:20 Furosemide 40 Mg Tab PO 02/24/20 14:00 Not Given NOW [facility]GI Ceftriaxone Sodium 1 gm/ 100 mls @ 200 mls/hr 02/23/20 13:00 02/24/20 12:49 Sodium Chloride IVPB 100 mls Q24HR [facility]GI Administration Potassium Chloride 40 meq/ 100 mls @ 25 mls/hr 02/24/20 09:00 02/24/20 10:01 Device IVPB 02/24/20 14:00 100 mls NOW [facility]GI Administration Nebivolol 2.5 mg 02/24/20 11:15 02/24/20 11:30 Nebivolol Hcl 5 Mg Tab PO 02/24/20 14:00 2.5 mg NOW [facility]GI Administration Rosuvastatin Calcium 10 mg 02/21/20 21:00 02/23/20 21:53 Rosuvastatin 10 Mg Tab PO 10 mg HS [facility]GI Administration Spironolactone 25 mg 02/24/20 11:15 02/24/20 11:33 Spironolactone 100 Mg Tab PO 02/24/20 14:00 25 mg NOW [facility]GI Administration - Exam General Appearance: NAD, awake alert Eye: PERRL ENT: normocephalic atraumatic Neck: supple Heart: RRR, normal peripheral pulses Respiratory: CTAB, normal chest expansion Gastrointestinal: soft, normal bowel sounds Neurological: cranial nerve grossly intact, no focal deficits Musculoskeletal: normal tone, generalized weakness Psychiatric: normal affect, normal behavior, A&O x 3 Hosp A/P - Plan Acute on chronic diastolic CHF exacerbation Status post dual-chamber pacemaker Mild coronary artery disease with 50% lesions in the diagonal artery NSTEMI type II Paroxysmal atrial fibrillation and atrial tachycardia on amiodarone and Eliquis Hypertension --Echo shows EF of 55% there is a pacemaker wire in the right ventricle mild mitral regurgitation -Was on high doses of diuretics at home the Lasix reduced to 40 mg twice a day and then to once a day along with the spironolactone added and will continue to monitor his potassium. Severe hypokalemia--being replaced Weakness multifactorial-- with being on aggressive diuretic regimen as well as deconditioning in this elderly. 17th Dysphagia with a severe risk for aspiration Elevated white count/leukocytosis and chest x-ray showing right base atelectasis versus chronic changes -Starting him on empiric antibiotic and follow the white count. modified barium swallow study he has a severe risk for aspiration. I talked to the daughter in [place] who is the case maker at [phone] Discussed his current medical conditions including electrolyte abnormality leukocytosis and aspiration risk. I discussed about PEG tube evaluation versus comfort care approach. Daughter wants to discuss with the mother and palliative on which direction to go. Meanwhile will a try to correct his electrolyte abnormality. Daughter also states that her mother is not in a good condition to take care of the spouse as well as to understand his medical conditions. The option of placing [facility] facility discussed and her daughter is concerned about the Covid nature and preferred to be her father to be at home etc... 18 Severe dysphagia with aspiration risk Pressure food--pured diet They prefer to go go home with home hospice on Thursday
[2020-02-24 14:07] VITALS: BMI 21.2
--- NOTE | 2020-02-24 14:16 | PDOC.FMACP ---
Advance Care Planning - Problem (1) Heart failure Status: Acute Code(s): I50.9 - HEART FAILURE, UNSPECIFIED (2) Dysphagia Status: Acute Code(s): R13.10 - DYSPHAGIA, UNSPECIFIED - Note Participants: patient, family, palliative care Summary: Palliative Care addressed Advanced Care Planning. The diagnosis, prognosis and goals of care were discussed. Appropriate forms and documentation to accomplish the goals of care were discussed. All questions were answered. *Elected to have diet with risk/educated on dysphagia and electing comfort v erses PEG *DNAR with completion of OOHDNAREmi prepared and placed on chart for physician signature *Hopeful for transition home with hospice after weekend *Previous services with [facility] Please also refer to Palliative Care notes in note section. Time Spent (mins): 35
[2020-02-24] MEDS: Rosuvastatin 10 MG TAB PO SCH (20:22)
[2020-02-24] MEDS: Famotidine 20 MG TAB PO SCH (20:22)
[2020-02-25 04:55] LABS: Anion Gap 16 mmol/L (10-20); BUN (Urea Nitrogen) 64 mg/dL (8.4-25.7); Calc. Creatinine Clearance 28 mL/min (70-130); Calcium 8.2 mg/dL (7.8-10.44); Carbon Dioxide 31 mmol/L (23-31); Chloride 96 mmol/L (98-107); Glucose 103 mg/dL (83-110); Potassium 3.8 mmol/L (3.5-5.1); Sodium 139 mmol/L (136-145)
[2020-02-25] MEDS: Spironolactone 100 MG TAB PO SCH (08:14)
[2020-02-25] MEDS: Apixaban 2.5 MG TAB PO SCH ×2 (08:14→19:45)
[2020-02-25] MEDS: Aspirin 81 mg Enteric Coated Tablet PO SCH (08:15)
[2020-02-25] MEDS: Ascorbic Acid 500 mg Chewable Tablet PO SCH ×2 (08:15→19:44)
[2020-02-25] MEDS: Amiodarone 200 MG TAB PO SCH (08:15)
[2020-02-25] MEDS: Furosemide 40 MG TAB PO SCH (08:16)
[2020-02-25] MEDS: Ezetimibe 10 MG TAB PO SCH (08:16)
[2020-02-25] MEDS: Nebivolol HCl 5 MG TAB PO SCH (08:16)
--- NOTE | 2020-02-25 10:49 | EKG ---
Test Reason : Blood Pressure : / mmHG Vent. Rate : 061 BPM Atrial Rate : 062 BPM P-R Int : 178 ms QRS Dur : 196 ms QT Int : 518 ms P-R-T Axes : -25 -87 091 degrees QTc Int : 521 ms AV dual-paced rhythm Abnormal ECG Confirmed by KATIANA WARNER, ALTON Mena ([id number]), news copy editor ANNA VANN ([id number]) on 02/25/2020 10:49:34 AM Referred By: Confirmed By:ALTON SAAB MD
[2020-02-25] MEDS: cefTRIAXone\\ROCEPHIN 1 GM in Sodium Chloride 0.9% 100 ML IVPB SCH (12:05)
--- NOTE | 2020-02-25 13:50 | PDOC.CPN ---
- Subjective Date: 02/25/20 Time: 11:50 Interval history: No overnight events or cardiac complaints. - Review of Systems General: denies: fever/chills, weight/appetite/sleep changes, night sweats, fatigue Respiratory: reports: cough. denies: congestion, shortness of breath, exercise intolerance Cardiovascular: denies: chest pain, palpitation, edema, paroxysmal nocturnal dyspnea, orthopnea Gastrointestinal: denies: nausea, vomiting, diarrhea, constipation, abd pain, GI bleeding Musculoskeletal: denies: pain, tenderness, stiffness, swelling, arthritis /arthralgias Neurological: denies: numbness, syncope, seizure, weakness - Objective Allergies/Adverse Reactions: Allergies Allergy/AdvReac Type Severity Reaction Status Date / Time No Known Allergies Allergy Verified 01/03/20 10:29 Visit Medications: Current Medications Acetaminophen (Acetaminophen 500 Mg Tab) 1,000 mg PO Q6H PRN PRN Reason: Mild Pain (1-3) Amiodarone HCl (Amiodarone 200 Mg Tab) 200 mg PO DAILY [facility] Last Admin: 02/25/20 08:15 Dose: 200 mg Documented by: Apixaban (Apixaban 2.5 Mg Tab) 2.5 mg PO BID [facility] Last Admin: 02/25/20 08:14 Dose: 2.5 mg Documented by: Ascorbic Acid (Ascorbic Acid 500 Mg Chewable Tablet) 500 mg PO BID [facility] Last Admin: 02/25/20 08:15 Dose: 500 mg Documented by: Aspirin (Aspirin 81 Mg Enteric Coated Tablet) 81 mg PO DAILY [facility] Last Admin: 02/25/20 08:15 Dose: 81 mg Documented by: Cholecalciferol (Cholecalciferol 1,000 Units (25 Mcg) Tab) 1,000 units PO MWF [facility] Last Admin: 02/24/20 09:59 Dose: 1,000 units Documented by: Ezetimibe (Ezetimibe 10 Mg Tab) 2.5 mg PO DAILY [facility] Last Admin: 02/25/20 08:16 Dose: 2.5 mg Documented by: Famotidine (Famotidine 20 Mg Tab) 20 mg PO Q24HR [facility] Last Admin: 02/24/20 20:22 Dose: 20 mg Documented by: Furosemide (Furosemide 40 Mg Tab) 40 mg PO DAILY-AC [facility] Last Admin: 02/25/20 08:16 Dose: 40 mg Documented by: Ceftriaxone Sodium 1 gm/ (Sodium Chloride) 100 mls @ 200 mls/hr IVPB Q24HR [facility] Last Admin: 02/25/20 12:05 Dose: 100 mls Documented by: Nebivolol (Nebivolol Hcl 5 Mg Tab) 2.5 mg PO DAILY [facility] Last Admin: 02/25/20 08:16 Dose: 2.5 mg Documented by: Ondansetron HCl (Ondansetron Odt 4 Mg Tab) 4 mg SL Q6H PRN PRN Reason: Nausea/Vomiting Ondansetron HCl (Ondansetron Pf 4 Mg/2 Ml Vial) 4 mg IVP Q6H PRN PRN Reason: Nausea/Vomiting Rosuvastatin Calcium (Rosuvastatin 10 Mg Tab) 10 mg PO HS [facility] Last Admin: 02/24/20 20:22 Dose: 10 mg Documented by: Sodium Chloride (Flush - Normal Saline 10 Ml Syringe) 10 ml IVF Q12HR [facility] Last Admin: 02/25/20 08:17 Dose: 10 ml Documented by: Sodium Chloride (Flush - Normal Saline 10 Ml Syringe) 10 ml IVF PRN PRN PRN Reason: Saline Flush Spironolactone (Spironolactone 100 Mg Tab) 25 mg PO QAM-WM [facility] Last Admin: 02/25/20 08:14 Dose: 25 mg Documented by: Vital Signs & Weight: Vital Signs Temp Pulse Resp BP Pulse Ox 02/25/20 11:33 98.1 F 60 19 117/56 L 97 02/25/20 08:07 98.1 F 62 20 140/67 96 02/25/20 03:58 97.6 F 60 16 136/63 92 L Admit Weight 132 lb 12.8 oz Weight 130 lb - Physical Exam General: alert & oriented x3, appears well, no apparent distress HEENT: mucus membranes moist Neck: supple neck Cardiac: regular rate and rhythm Lungs: no wheezes, scattered rhonchi Neuro: grossly intact Abdomen: soft Skin: clear - Labs Result Diagrams: 02/24/20 04:13 02/25/20 03:12 Troponin/CKMB CK-MB (CK-2) 3.0 ng/mL (0-6.6) 02/20/20 15:01 Troponin I 0.407 ng/mL (< 0.028) H* 02/20/20 17:47 - Assessment/Plan Assessment/Plan: 1. Chronic diastolic CHF 2. s/p pacemaker 3. Cough and aspiration risk. 4. Deconditioning Main issue is swallowing and aspiration risk. Stable cardiac status. Will con tinue to follow. No changes. RG 02/24 Pt seen and examined. Agree with the above
--- NOTE | 2020-02-25 16:08 | PDOC.HOSPP ---
- Subjective Encounter Date: 02/25/20 Encounter Time: 16:03 Subjective: This is an 89-year-old gentleman who was admitted to the hospital for CHF exacerbation. He has been complained about generalized weakness and loss of appetite. He does have follow-up with pulmonary and cardiology services. Recently he had thoracentesis with about 1200 mL of fluid removed from his lungs. His main complaint right now appears to be cough with mucopurulent sputum. On exam he seems clinically dehydrated. He was found to have high risk for aspiration on speech evaluation done earlier during this hospitalization. However family are okay with him eating. Right now he has no other symptoms when I visited. - Objective Vital Signs & Weight: Vital Signs (12 hours) Temp Pulse Resp BP Pulse Ox 02/25/20 15:35 97.7 F 60 14 120/59 L 02/25/20 11:33 98.1 F 60 19 117/56 L 97 02/25/20 08:07 98.1 F 62 20 140/67 96 Weight Admit Weight 132 lb 12.8 oz Weight 130 lb I&O: 02/24/20 02/25/20 02/26/20 06:59 06:59 06:59 Intake Total 980 1890 Output Total 525 1025 Balance 455 865 Result Diagrams: 02/24/20 04:13 02/25/20 03:12 Radiology Reviewed by me: Yes EKG Reviewed by me: Yes Hospitalist ROS - Review of Systems Constitutional: reports: weakness, malaise Respiratory: reports: shortness of breath, SOB with excertion - Medication Medications: Active Medications Generic Name Dose Route Start Last Admin Trade Name Raj PRN Reason Stop Dose Admin Amiodarone HCl 200 mg 02/23/20 09:00 02/25/20 08:15 Amiodarone 200 Mg Tab PO 200 mg DAILY GIORGI Administration Apixaban 2.5 mg 02/21/20 09:00 02/25/20 08:14 Apixaban 2.5 Mg Tab PO 2.5 mg BID GIORGI Administration Ascorbic Acid 500 mg 02/21/20 09:00 02/25/20 08:15 Ascorbic Acid 500 Mg Chewable Tablet PO 500 mg BID GIORGI Administration Aspirin 81 mg 02/21/20 09:00 02/25/20 08:15 Aspirin 81 Mg Enteric Coated Tablet PO 81 mg DAILY GIORGI Administration Cholecalciferol 1,000 units 02/22/20 09:00 02/24/20 09:59 Cholecalciferol 1,000 Units (25 Mcg) Tab PO 1,000 units MWF GIORGI Administration Ezetimibe 2.5 mg 02/21/20 09:00 02/25/20 08:16 Ezetimibe 10 Mg Tab PO 2.5 mg DAILY GIORGI Administration Famotidine 20 mg 02/20/20 21:44 02/24/20 20:22 Famotidine 20 Mg Tab PO 20 mg Q24HR GIORGI Administration Furosemide 40 mg 02/25/20 07:30 02/25/20 08:16 Furosemide 40 Mg Tab PO 40 mg DAILY-AC GIORGI Administration Ceftriaxone Sodium 1 gm/ 100 mls @ 200 mls/hr 02/23/20 13:00 02/25/20 12:05 Sodium Chloride IVPB 100 mls Q24HR GIORGI Administration Nebivolol 2.5 mg 02/25/20 09:00 02/25/20 08:16 Nebivolol Hcl 5 Mg Tab PO 2.5 mg DAILY GIORGI Administration Rosuvastatin Calcium 10 mg 02/21/20 21:00 02/24/20 20:22 Rosuvastatin 10 Mg Tab PO 10 mg HS GIORGI Administration Sodium Chloride 10 ml 02/24/20 21:00 02/25/20 08:17 Flush - Normal Saline 10 Ml Syringe IVF 10 ml Q12HR GIORGI Administration Spironolactone 25 mg 02/25/20 08:00 02/25/20 08:14 Spironolactone 100 Mg Tab PO 25 mg QAM-WM GIORGI Administration - Exam General Appearance: awake alert, ill appearing Eye: PERRL ENT: normocephalic atraumatic, no oropharyngeal lesions Neck: supple, symmetric, no JVD, no thyromegaly Heart: RRR, no murmur, no gallops, no rubs Respiratory: CTAB, no wheezes, no rales Gastrointestinal: soft, non-tender, non-distended Neurological: cranial nerve grossly intact Musculoskeletal: normal tone, normal strength, no muscle wasting Psychiatric: normal affect, normal behavior, A&O x 3 Hosp A/P (1) Dysphagia Code(s): R13.10 - DYSPHAGIA, UNSPECIFIED Status: Acute Qualifiers: Dysphagia type: oropharyngeal phase Qualified Code(s): R13.12 - Dysphagia, oropharyngeal phase Plan: He seems to be tolerating his meals just fine. (2) Heart failure Code(s): I50.9 - HEART FAILURE, UNSPECIFIED Status: Acute Qualifiers: Heart failure type: combined systolic and diastolic Heart failure chronicity: acute on chronic Qualified Code(s): I50.43 - Acute on chronic combined systolic (congestive) and diastolic (congestive) heart failure Plan: He is responding well to diuretics. (3) Atrial fibrillation Code(s): I48.91 - UNSPECIFIED ATRIAL FIBRILLATION Status: Chronic Qualifiers: Atrial fibrillation type: persistent (not longstanding) Qualified Code(s): I48.19 - Other persistent atrial fibrillation; I48.1 - Persistent atrial fibrillation - Plan old records reviewed/req, plan discussed w/ family, PT/OT
[2020-02-25] MEDS: Rosuvastatin 10 MG TAB PO SCH (19:44)
[2020-02-25] MEDS: Famotidine 20 MG TAB PO SCH (19:44)
[2020-02-26] MEDS: Calcium Carbonate 500 MG ChewTAB PO PRN ×2 (04:06→08:36)
[2020-02-26] MEDS: Furosemide 40 MG TAB PO SCH (08:36)
[2020-02-26] MEDS: Ascorbic Acid 500 mg Chewable Tablet PO SCH ×2 (08:41→20:39)
[2020-02-26] MEDS: Nebivolol HCl 5 MG TAB PO SCH (08:41)
[2020-02-26] MEDS: Amiodarone 200 MG TAB PO SCH (08:41)
[2020-02-26] MEDS: Apixaban 2.5 MG TAB PO SCH ×2 (08:41→20:39)
[2020-02-26] MEDS: Aspirin 81 mg Enteric Coated Tablet PO SCH (08:41)
[2020-02-26] MEDS: Ezetimibe 10 MG TAB PO SCH (08:41)
[2020-02-26] MEDS: Spironolactone 100 MG TAB PO SCH (08:42)
[2020-02-26] MEDS: cefTRIAXone\\ROCEPHIN 1 GM in Sodium Chloride 0.9% 100 ML IVPB SCH (12:05)
--- NOTE | 2020-02-26 12:30 | PDOC.CPN ---
- Subjective Date: 02/26/20 Time: 09:55 Interval history: Patient without cardiac complaints. No overnight events. - Review of Systems General: denies: fever/chills, weight/appetite/sleep changes, night sweats, fatigue Respiratory: reports: cough Cardiovascular: denies: chest pain, palpitation, edema, paroxysmal nocturnal dyspnea, orthopnea Gastrointestinal: denies: nausea, vomiting, diarrhea, constipation, abd pain, GI bleeding Musculoskeletal: denies: pain, tenderness, stiffness, swelling, arthritis/arthralgias Neurological: denies: numbness, syncope, seizure, weakness - Objective Allergies/Adverse Reactions: Allergies Allergy/AdvReac Type Severity Reaction Status Date / Time No Known Allergies Allergy Verified 01/03/20 10:29 Visit Medications: Current Medications Acetaminophen (Acetaminophen 500 Mg Tab) 1,000 mg PO Q6H PRN PRN Reason: Mild Pain (1-3) Amiodarone HCl (Amiodarone 200 Mg Tab) 200 mg PO DAILY [facility] Last Admin: 02/26/20 08:41 Dose: 200 mg Documented by: Apixaban (Apixaban 2.5 Mg Tab) 2.5 mg PO BID [facility] Last Admin: 02/26/20 08:41 Dose: 2.5 mg Documented by: Ascorbic Acid (Ascorbic Acid 500 Mg Chewable Tablet) 500 mg PO BID [facility] Last Admin: 02/26/20 08:41 Dose: 500 mg Documented by: Aspirin (Aspirin 81 Mg Enteric Coated Tablet) 81 mg PO DAILY [facility] Last Admin: 02/26/20 08:41 Dose: 81 mg Documented by: Calcium Carbonate (Calcium Carbonate 500 Mg Chewtab) 1,000 mg PO DAILYPRN PRN PRN Reason: Heartburn or Indigestion Last Admin: 02/26/20 08:36 Dose: 1,000 mg Documented by: Cholecalciferol (Cholecalciferol 1,000 Units (25 Mcg) Tab) 1,000 units PO MWF [facility] Last Admin: 02/24/20 09:59 Dose: 1,000 units Documented by: Ezetimibe (Ezetimibe 10 Mg Tab) 2.5 mg PO DAILY [facility] Last Admin: 02/26/20 08:41 Dose: 2.5 mg Documented by: Famotidine (Famotidine 20 Mg Tab) 20 mg PO Q24HR [facility] Last Admin: 02/25/20 19:44 Dose: 20 mg Documented by: Furosemide (Furosemide 40 Mg Tab) 40 mg PO DAILY-AC [facility] Last Admin: 02/26/20 08:36 Dose: 40 mg Documented by: Ceftriaxone Sodium 1 gm/ (Sodium Chloride) 100 mls @ 200 mls/hr IVPB Q24HR [facility] Last Admin: 02/26/20 12:05 Dose: 100 mls Documented by: Nebivolol (Nebivolol Hcl 5 Mg Tab) 2.5 mg PO DAILY [facility] Last Admin: 02/26/20 08:41 Dose: 2.5 mg Documented by: Ondansetron HCl (Ondansetron Odt 4 Mg Tab) 4 mg SL Q6H PRN PRN Reason: Nausea/Vomiting Ondansetron HCl (Ondansetron Pf 4 Mg/2 Ml Vial) 4 mg IVP Q6H PRN PRN Reason: Nausea/Vomiting Rosuvastatin Calcium (Rosuvastatin 10 Mg Tab) 10 mg PO HS [facility] Last Admin: 02/25/20 19:44 Dose: 10 mg Documented by: Sodium Chloride (Flush - Normal Saline 10 Ml Syringe) 10 ml IVF Q12HR [facility] Last Admin: 02/26/20 08:42 Dose: 10 ml Documented by: Sodium Chloride (Flush - Normal Saline 10 Ml Syringe) 10 ml IVF PRN PRN PRN Reason: Saline Flush Spironolactone (Spironolactone 100 Mg Tab) 25 mg PO QAM-WM [facility] Last Admin: 02/26/20 08:42 Dose: 25 mg Documented by: Vital Signs & Weight: Vital Signs Temp Pulse Resp BP Pulse Ox 02/26/20 12:05 98.1 F 61 19 116/58 L 98 02/26/20 07:28 97.8 F 60 19 123/59 L 99 02/26/20 03:41 98.6 F 62 20 124/60 94 L Admit Weight 132 lb 12.8 oz Weight 128 lb - Physical Exam General: appears well, no apparent distress HEENT: normocephaly Neck: supple neck Cardiac: regular rate and rhythm Lungs: no wheezes, no rhonchi Neuro: grossly intact Abdomen: soft, non-tender - Labs Result Diagrams: 02/24/20 04:13 02/25/20 03:12 Troponin/CKMB CK-MB (CK-2) 3.0 ng/mL (0-6.6) 02/20/20 15:01 Troponin I 0.407 ng/mL (< 0.028) H* 02/20/20 17:47 - Assessment/Plan Assessment/Plan: 1. Chronic diastolic CHF 2. s/p pacemaker 3. Cough and aspiration risk. 4. Deconditioning Continue ST/OT/PT. Diuresing well. Will see PRN.
--- NOTE | 2020-02-26 13:41 | PDOC.HOSPP ---
- Subjective Encounter Date: 02/26/20 Encounter Time: 13:40 Subjective: This patient was seen and evaluated with his at the bedside. reports no issues overnight. Patient was sleepy but awakes easily. On exam he is not in any distress. He is on room air and saturating above 99%. I discussed with case management about discharge planning. Patient has been set up with [facility] either home health or hospice on discharge. [facility] are supposed to get in touch with family to discuss and go over stuff prior to his discharge. I am hopeful this will be ready by tomorrow and we can plan to discharge him tomorrow. - Objective Vital Signs & Weight: Vital Signs (12 hours) Temp Pulse Resp BP Pulse Ox 02/26/20 12:05 98.1 F 61 19 116/58 L 98 02/26/20 07:28 97.8 F 60 19 123/59 L 99 02/26/20 03:41 98.6 F 62 20 124/60 94 L Weight Admit Weight 132 lb 12.8 oz Weight 128 lb I&O: 02/25/20 02/26/20 02/27/20 06:59 06:59 06:59 Intake Total 1890 1497 Output Total 1025 600 Balance 865 897 Result Diagrams: 02/24/20 04:13 02/25/20 03:12 Radiology Reviewed by me: Yes EKG Reviewed by me: Yes Hospitalist ROS - Review of Systems Constitutional: reports: weakness Respiratory: reports: shortness of breath Gastrointestinal: reports: nausea, vomiting - Medication Medications: Active Medications Generic Name Dose Route Start Last Admin Trade Name Tatoq PRN Reason Stop Dose Admin Amiodarone HCl 200 mg 02/23/20 09:00 02/26/20 08:41 Amiodarone 200 Mg Tab PO 200 mg DAILY GIORGI Administration Apixaban 2.5 mg 02/21/20 09:00 02/26/20 08:41 Apixaban 2.5 Mg Tab PO 2.5 mg BID GIORGI Administration Ascorbic Acid 500 mg 02/21/20 09:00 02/26/20 08:41 Ascorbic Acid 500 Mg Chewable Tablet PO 500 mg BID GIORGI Administration Aspirin 81 mg 02/21/20 09:00 02/26/20 08:41 Aspirin 81 Mg Enteric Coated Tablet PO 81 mg DAILY GIORGI Administration Calcium Carbonate 1,000 mg 02/26/20 02:54 02/26/20 08:36 Calcium Carbonate 500 Mg Chewtab PO 1,000 mg DAILYPRN PRN Administration Heartburn or Indigestion Cholecalciferol 1,000 units 02/22/20 09:00 02/24/20 09:59 Cholecalciferol 1,000 Units (25 Mcg) Tab PO 1,000 units MWF GIORGI Administration Ezetimibe 2.5 mg 02/21/20 09:00 02/26/20 08:41 Ezetimibe 10 Mg Tab PO 2.5 mg DAILY GIORGI Administration Famotidine 20 mg 02/20/20 21:44 02/25/20 19:44 Famotidine 20 Mg Tab PO 20 mg Q24HR GIORGI Administration Furosemide 40 mg 02/25/20 07:30 02/26/20 08:36 Furosemide 40 Mg Tab PO 40 mg DAILY-AC GIORGI Administration Ceftriaxone Sodium 1 gm/ 100 mls @ 200 mls/hr 02/23/20 13:00 02/26/20 12:05 Sodium Chloride IVPB 100 mls Q24HR GIORGI Administration Nebivolol 2.5 mg 02/25/20 09:00 02/26/20 08:41 Nebivolol Hcl 5 Mg Tab PO 2.5 mg DAILY [facility]ORGI Administration Rosuvastatin Calcium 10 mg 02/21/20 21:00 02/25/20 19:44 Rosuvastatin 10 Mg Tab PO 10 mg HS GIORGI Administration Sodium Chloride 10 ml 02/24/20 21:00 02/26/20 08:42 Flush - Normal Saline 10 Ml Syringe IVF 10 ml Q12HR GIORGI Administration Spironolactone 25 mg 02/25/20 08:00 02/26/20 08:42 Spironolactone 100 Mg Tab PO 25 mg QAM-WM GIORGI Administration - Exam General Appearance: NAD, ill appearing Eye: PERRL, anicteric sclera, scleral icterus ENT: normocephalic atraumatic, no oropharyngeal lesions Heart: RRR, no murmur Respiratory: CTAB, no wheezes Gastrointestinal: soft, non-tender, non-distended Neurological: cranial nerve grossly intact Psychiatric: normal affect, normal behavior, A&O x 3 Hosp A/P (1) Dysphagia Code(s): R13.10 - DYSPHAGIA, UNSPECIFIED Status: Acute Qualifiers: Dysphagia type: oropharyngeal phase Qualified Code(s): R13.12 - Dysphagia, oropharyngeal phase Plan: He seems to be tolerating his meals by mouth now according to the . (2) Heart failure Code(s): I50.9 - HEART FAILURE, UNSPECIFIED Status: Acute Qualifiers: Heart failure type: combined systolic and diastolic Heart failure chronicity: acute on chronic Qualified Code(s): I50.43 - Acute on chronic combined systolic (congestive) and diastolic (congestive) heart failure Plan: We will continue home medications as above. (3) Atrial fibrillation Code(s): I48.91 - UNSPECIFIED ATRIAL FIBRILLATION Status: Chronic Qualifiers: Atrial fibrillation type: persistent (not longstanding) Qualified Code(s): I48.19 - Other persistent atrial fibrillation; I48.1 - Persistent atrial fibrillation - Plan old records reviewed/req, PT/OT Consults: Hospice [facility] will likely be discharged with [facility]
[2020-02-26] MEDS: Rosuvastatin 10 MG TAB PO SCH (20:39)
[2020-02-26] MEDS ORDERED: Calcium Carbonate 500 MG ChewTAB PO PRN (22:41)
[2020-02-27] MEDS: Apixaban 2.5 MG TAB PO SCH ×2 (08:22→21:15)
[2020-02-27] MEDS: Ascorbic Acid 500 mg Chewable Tablet PO SCH ×2 (08:22→21:15)
[2020-02-27] MEDS: Amiodarone 200 MG TAB PO SCH (08:22)
[2020-02-27] MEDS: Furosemide 40 MG TAB PO SCH (08:22)
[2020-02-27] MEDS: Spironolactone 100 MG TAB PO SCH (08:22)
[2020-02-27] MEDS: Nebivolol HCl 5 MG TAB PO SCH (08:23)
[2020-02-27] MEDS: Ezetimibe 10 MG TAB PO SCH (08:23)
[2020-02-27] MEDS: Cholecalciferol 1,000 UNITS (25 MCG) TAB PO SCH (08:23)
[2020-02-27] MEDS: Aspirin 81 mg Enteric Coated Tablet PO SCH (08:23)
[2020-02-27] MEDS: cefTRIAXone\\ROCEPHIN 1 GM in Sodium Chloride 0.9% 100 ML IVPB SCH (13:04)
--- NOTE | 2020-02-27 15:15 | PDOC.HOSPP ---
- Subjective Encounter Date: 02/27/20 Encounter Time: 15:14 Subjective: I visited with patient and his and the daughter who drove in from [facility] and discussed plan of care for post hospital discharge. The wanted to go home on hospice. This will be arranged through [facility]. The patient stated his wishes to return home with hospice and we will honor his wishes. - Objective Vital Signs & Weight: Vital Signs (12 hours) Temp Pulse Resp BP Pulse Ox 02/27/20 14:51 97.7 F 60 16 107/59 L 99 02/27/20 08:17 97.8 F 60 16 133/60 98 02/27/20 03:55 97.5 F L 62 20 123/58 L 93 L Weight Admit Weight 132 lb 12.8 oz Weight 130 lb I&O: 02/26/20 02/27/20 02/28/20 06:59 06:59 06:59 Intake Total 1497 1310 Output Total 600 350 Balance 897 960 Result Diagrams: 02/24/20 04:13 02/25/20 03:12 Radiology Reviewed by me: Yes EKG Reviewed by me: Yes Hospitalist ROS - Review of Systems Constitutional: reports: weakness Respiratory: reports: shortness of breath - Medication Medications: Active Medications Generic Name Dose Route Start Last Admin Trade Name Freq PRN Reason Stop Dose Admin Amiodarone HCl 200 mg 02/23/20 09:00 02/27/20 08:22 Amiodarone 200 Mg Tab PO 200 mg DAILY GIORGI Administration Apixaban 2.5 mg 02/21/20 09:00 02/27/20 08:22 Apixaban 2.5 Mg Tab PO 2.5 mg BID GIORGI Administration Ascorbic Acid 500 mg 02/21/20 09:00 02/27/20 08:22 Ascorbic Acid 500 Mg Chewable Tablet PO 500 mg BID GIORGI Administration Aspirin 81 mg 02/21/20 09:00 02/27/20 08:23 Aspirin 81 Mg Enteric Coated Tablet PO 81 mg DAILY GIORGI Administration Calcium Carbonate 1,000 mg 02/26/20 22:41 02/27/20 01:00 Calcium Carbonate 500 Mg Chewtab PO 1,000 mg BIDPRN PRN Administration Heartburn or Indigestion Cholecalciferol 1,000 units 02/22/20 09:00 02/27/20 08:23 Cholecalciferol 1,000 Units (25 Mcg) Tab PO 1,000 units MWF [facility]ORGI Administration Ezetimibe 2.5 mg 02/21/20 09:00 02/27/20 08:23 Ezetimibe 10 Mg Tab PO 2.5 mg DAILY [facility]ORGI Administration Famotidine 20 mg 02/20/20 21:44 02/25/20 19:44 Famotidine 20 Mg Tab PO 20 mg Q24HR GIORGI Administration Furosemide 40 mg 02/25/20 07:30 02/27/20 08:22 Furosemide 40 Mg Tab PO 40 mg DAILY-AC [facility]GI Administration Ceftriaxone Sodium 1 gm/ 100 mls @ 200 mls/hr 02/23/20 13:00 02/27/20 13:04 Sodium Chloride IVPB 100 mls Q24HR [facility]ORGI Administration Nebivolol 2.5 mg 02/25/20 09:00 02/27/20 08:23 Nebivolol Hcl 5 Mg Tab PO 2.5 mg DAILY GIORGI Administration Rosuvastatin Calcium 10 mg 02/21/20 21:00 02/26/20 20:39 Rosuvastatin 10 Mg Tab PO 10 mg HS GIORGI Administration Sodium Chloride 10 ml 02/24/20 21:00 02/27/20 08:24 Flush - Normal Saline 10 Ml Syringe IVF 10 ml Q12HR GIORGI Administration Spironolactone 25 mg 02/25/20 08:00 02/27/20 08:22 Spironolactone 100 Mg Tab PO 25 mg QAM-WM GIORGI Administration - Exam General Appearance: awake alert, ill appearing Eye: PERRL ENT: normocephalic atraumatic, dry oral mucosa Neck: supple, symmetric, no JVD Heart: RRR, no murmur, no gallops, no rubs, normal peripheral pulses Respiratory: CTAB, no wheezes, no rales, no ronchi Gastrointestinal: soft, non-tender, non-distended Neurological: cranial nerve grossly intact, normal sensation to touch Psychiatric: normal affect, normal behavior, A&O x 3 Hosp A/P (1) Dysphagia Code(s): R13.10 - DYSPHAGIA, UNSPECIFIED Status: Acute Qualifiers: Dysphagia type: oropharyngeal phase Qualified Code(s): R13.12 - Dysphagia, oropharyngeal phase Plan: Patient with ongoing aspiration but seems to be tolerating some full liquid diet. (2) Heart failure Code(s): I50.9 - HEART FAILURE, UNSPECIFIED Status: Acute Qualifiers: Heart failure type: combined systolic and diastolic Heart failure chronicity: acute on chronic Qualified Code(s): I50.43 - Acute on chronic combined systolic (congestive) and diastolic (congestive) heart failure (3) Atrial fibrillation Code(s): I48.91 - UNSPECIFIED ATRIAL FIBRILLATION Status: Chronic Qualifiers: Atrial fibrillation type: persistent (not longstanding) Qualified Code(s): I48.19 - Other persistent atrial fibrillation; I48.1 - Persistent atrial fibrillation - Plan plan discussed w/ family, PT/OT, social work specialist Consults: Hospice He will likely be discharged with [facility] hosp[facility] group.
[2020-02-27] MEDS: Famotidine 20 MG TAB PO SCH (21:15)
[2020-02-27] MEDS: Rosuvastatin 10 MG TAB PO SCH (21:15)
[2020-02-28] MEDS: Spironolactone 100 MG TAB PO SCH (07:24)
[2020-02-28] MEDS: Furosemide 40 MG TAB PO SCH (07:24)
[2020-02-28] MEDS: Ezetimibe 10 MG TAB PO SCH (08:59)
[2020-02-28] MEDS: Aspirin 81 mg Enteric Coated Tablet PO SCH (08:59)
[2020-02-28] MEDS: Apixaban 2.5 MG TAB PO SCH (08:59)
[2020-02-28] MEDS: Amiodarone 200 MG TAB PO SCH (08:59)
[2020-02-28] MEDS: Nebivolol HCl 5 MG TAB PO SCH (08:59)
[2020-02-28] MEDS: Ascorbic Acid 500 mg Chewable Tablet PO SCH (09:00)
[2020-02-28 11:59] VITALS: TEMP 98
[2020-02-28] MEDS: cefTRIAXone\\ROCEPHIN 1 GM in Sodium Chloride 0.9% 100 ML IVPB SCH (12:01)
--- NOTE | 2020-02-28 13:27 | PDOC.DS.DS ---
Provider - Provider Date of Admission: 02/20/20 14:44 Date of Discharge: 02/28/20 Admitting Provider: Jamil Clarke DO Consultations: Cardiology Primary Care Physician: José Luis South MD Course - Hospital Course Hospital Course: Mr. Eastman is an 89-year-old patient with a history of diastolic heart failure and other chronic medical issues who presented to the hospital with generalized weakness. He had noted decreased exercise tolerance and some edema involving his bilateral lower extremities. His Lasix was recently adjusted and he claims that he has been very compliant. He recently had thoracentesis for right pleural effusion done by the kitchen bath designer during his last admission. His stated that he has not been doing very well here in the last few days and he was promptly admitted due to the aforementioned concerns. He had hy pokalemia which was replaced during this hospitalization. He was seen briefly by his dental assistant who agreed with medical management. Patient seems pretty debilitated likely combination of his illness and senile debility. At any rate after further discussion with the patient and his family he elected to go on home hospice. He was stable enough and will discharge home today with [facility]. His echocardiogram showed a preserved ejection fraction with some mild mitral regurgitation. He is discharged home today with hospice care. Resuscitation Status: 02/23/20 17:15 Resuscitation Status Routine Resuscitation Status: DNAR: NO Resuscitation Discussed with: confirmed with pt Additional comments: inpt DNAr completed prev admission - Labs Lab Results: 02/24/20 04:13 02/25/20 03:12 - Physical Exam Vitals: Vital Signs (12 hours) Temp Pulse Resp BP Pulse Ox 02/28/20 11:55 98.0 F 60 15 101/53 L 97 02/28/20 08:41 99 02/28/20 07:15 97.7 F 60 16 111/53 L 99 02/28/20 04:00 97.9 F 60 18 112/55 L 93 L Weight Admit Weight 132 lb 12.8 oz Weight 131 lb 6.4 oz Physical Exam: The patient was seen and examined on the day of discharge. Problem - Problem (1) Dysphagia Code(s): R13.10 - DYSPHAGIA, UNSPECIFIED Status: Acute Qualifiers: Dysphagia type: oropharyngeal phase Qualified Code(s): R13.12 - Dysphagia, oropharyngeal phase (2) Heart failure Code(s): I50.9 - HEART FAILURE, UNSPECIFIED Status: Acute Qualifiers: Heart failure type: combined systolic and diastolic Heart failure chronicity: acute on chronic Qualified Code(s): I50.43 - Acute on chronic combined systolic (congestive) and diastolic (congestive) heart failure (3) Atrial fibrillation Code(s): I48.91 - UNSPECIFIED ATRIAL FIBRILLATION Status: Chronic Qualifiers: Atrial fibrillation type: persistent (not longstanding) Qualified Code(s): I48.19 - Other persistent atrial fibrillation; I48.1 - Persistent atrial fibrillation Plan - Discharge Medications Home Medications: Medication Instructions Recorded Confirmed Type Aspirin [Ecotrin Low Strength] 81 mg PO DAILY 04/09/19 02/21/20 History Calcium Carbonate [Tums] 1,000 mg PO QID PRN 04/09/19 02/21/20 History Cholecalciferol (Vitamin D3) 1,000 unit PO MWF 04/09/19 02/21/20 History [Vitamin D] Ezetimibe [Zetia] 2.5 mg PO DAILY 04/09/19 02/21/20 History Nebivolol HCl [Bystolic] 2.5 mg PO DAILY 04/09/19 02/21/20 History Rosuvastatin Calcium 10 mg PO BID 04/09/19 02/21/20 History Pantoprazole [Protonix] 40 mg PO BID #60 tab 04/11/19 02/21/20 Rx Furosemide [Lasix] 120 mg PO DAILY 01/03/20 02/21/20 History Potassium Chloride [Klor-Con 10] 10 meq PO BID 02/21/20 02/21/20 History Amiodarone [Cordarone] 200 mg PO DAILY tab 02/28/20 Rx Allergies: No Known Allergies Allergy (Verified 01/03/20 10:29) - Discharge Instructions Activity:: Activity as Tolerated Nourishment:: Heart Healthy Diet, Supplemental Diet Therapies:: Occupational Therapy, Physical Therapy, Speech Therapy Equipment/Supplies:: Not Applicable - Follow up Plan Referrals: Cardiac Rehab -[place] [Outside] - 7 Days (Your doctor has ordered outpatient cardiac rehab for you to begin within 1-2 weeks after you go home from the hospital. The location nearest to you is the [facility]. The front office in [place] will call you in 3-5 days to get you scheduled for your evaluation. If you do not receive a call, please reach out to them at [phone] and request an appointment. Should you have any trouble or need assistance, please call the cardiac rehab main line in [place] at [phone]) [facility] [Outside] (Home with Hospice services through [facility] agency.) José Luis South MD [Primary Care Provider] - 7 Days (Please follow up with your primary care provider in 7days. Call the office to schedule an appointment.) Jose Lui MD [Active] - 14 Days (Call for any questions) Disposition: HOSPICE-HOME Quality - Care Measures CORE MEASURES:: N/A
[2020-02-28 15:52] VITALS: BP 105/51
== END 2020-02-28 18:50 | disposition hospice, home (50) | DRG 280 ==
LOC: ERS 11:07 → ERHOLD 14:44 → 2NO 02-21 00:37
PROVIDERS: ADMIT Family Medicine; ATTEND Hospitalist
DX: I13.0 Hypertensive heart and chronic kidney disease with heart failure and stage 1 through stage 4 chronic kidney disease, or unspecified chronic kidney disease (principal); I50.43 Acute on chronic combined systolic (congestive) and diastolic (congestive) heart failure; I21.A1 Myocardial infarction type 2; Z66 Do not resuscitate; Z51.5 Encounter for palliative care; Z20.828 Contact with and (suspected) exposure to other viral communicable diseases; I48.19 Other persistent atrial fibrillation; N17.9 Acute kidney failure, unspecified; I47.1 Supraventricular tachycardia; R13.12 Dysphagia, oropharyngeal phase; E78.00 Pure hypercholesterolemia, unspecified; Z96.612 Presence of left artificial shoulder joint; M19.90 Unspecified osteoarthritis, unspecified site; I25.10 Atherosclerotic heart disease of native coronary artery without angina pectoris; N18.9 Chronic kidney disease, unspecified; E87.6 Hypokalemia; M48.00 Spinal stenosis, site unspecified; R05 Cough; T46.4X5A Adverse effect of angiotensin-converting-enzyme inhibitors, initial encounter; I08.3 Combined rheumatic disorders of mitral, aortic and tricuspid valves; Z95.0 Presence of cardiac pacemaker; Z98.42 Cataract extraction status, left eye; Z98.41 Cataract extraction status, right eye; Z79.01 Long term (current) use of anticoagulants; I25.2 Old myocardial infarction; Z79.899 Other long term (current) drug therapy; Z79.82 Long term (current) use of aspirin
CPT/HCPCS: 36415; 70450; 71045; 74230; 80048; 80053; 81003; 82553; 83735; 83880; 84443; 84484; 85025; 85610; 85730; 87635; 93005; 93306; 94760; 97139; J0696; J1650; J1940; J3480; J3490; J7050; U0003